=== PATIENT | female | born 1935 | race Caucasian/White ===

== ENCOUNTER 2018-08-11 17:26 | Inpatient (IN) | payer MEDICARE, OTHER ==
--- NOTE | 2018-08-11 18:31 | EDM.PDOC ---
ED HPI GENERAL MEDICAL PROBLEM - General Chief Complaint: General Stated Complaint: lethargic Time Seen by Provider: 08/11/18 17:41 Source of Information: Reports: EMS, Family, [facility] Records, RN History Limitations: Reports: Altered Mental Status - History of Present Illness INITIAL COMMENTS - FREE TEXT/NARRATIVE: This patient is an 83 year old female that presents to the ER via EMS. Patient is from intermediate. Report is obtained from patient, family, EMS, RN. It is reported by family the patient since has been becoming more nonverbal. They say just not acting her self. They say, then on Monday that she has become less nonverbal and only answering by saying yes and no. They say then the following day on that she was even less responsive and slept more. They report than they visited today and noticed she was nonverbal and was hard to wake up. They report the patient about a week ago was being treated for leg wounds that were infected. Family reports that the were told that have been getting better. The patient intermediate reports the patient has had a fever and has had treatment for that. The patient arrives. She does follow some commands like opening her mouth Onset: Gradual Onset Date: 08/08/18 Duration: Day(s): (3), Getting Worse Severity: Severe Improves with: Reports: None Worsens with: Reports: None Associated Symptoms: Reports: Confusion, Fever/Chills, Loss of Appetite, Weakness. Denies: Chest Pain, Cough, cough w sputum, Diaphoresis, Headaches, Malaise, Nausea/Vomiting, Rash, Seizure, Shortness of Breath, Syncope - Related Data Allergies Allergy/AdvReac Type Severity Reaction Status Date / Time No Known Allergies Allergy Verified 09/12/14 08:24 Home Meds: Home Meds Enalapril/Hydrochlorothiazide [Vaseretic 10-25 MG] 1 tab PO DAILY 10/14/13 [ History] Metoprolol Tartrate [Lopressor] 50 mg PO BID 10/14/13 [History] Warfarin Sliding Scale [Coumadin Sliding Scale] 5 mg PO DAILY 10/14/13 [History] Acetaminophen [Tylenol Extra Strength] 1,000 mg PO TID 08/11/18 [History] Hydrocortisone [Cortef] 10 mg PO DAILY 08/11/18 [History] Hydrocortisone [Preparation H] 26 gm TP QID 08/11/18 [History] Magnesium Oxide 500 mg PO DAILY 08/11/18 [History] Memantine HCl [Namenda Xr] 28 mg PO DAILY 08/11/18 [History] Potassium Chloride [K-Tab ER] 20 meq PO DAILY 08/11/18 [History] Rivastigmine [Exelon] 4.6 mg TD DAILY 08/11/18 [History] Sertraline HCl [Zoloft] 50 mg PO DAILY 08/11/18 [History] Warfarin [Coumadin] 2.5 mg PO DAILY 08/11/18 [History] ED ROS GENERAL - Review of Systems Review Of Systems: See Below Constitutional: Reports: Weakness, Fatigue, Decreased Appetite HEENT: Reports: No Symptoms Respiratory: Reports: No Symptoms Cardiovascular: Reports: No Symptoms Endocrine: Reports: No Symptoms GI/Abdominal: Reports: No Symptoms : Reports: No Symptoms Musculoskeletal: Reports: No Symptoms Skin: Reports: No Symptoms Neurological: Reports: Confusion, Trouble Speaking, Weakness Psychiatric: Reports: No Symptoms Hematologic/Lymphatic: Reports: No Symptoms Immunologic: Reports: No Symptoms ED EXAM, GENERAL - Physical Exam Exam: See Below Exam Limited By: No Limitations General Appearance: Moderate Distress Eye Exam: Bilateral Eye: PERRL, Other (pale conjuctiva) Ears: Normal External Exam, Normal Canal, Hearing Grossly Normal, Normal TMs Ear Exam: Bilateral Ear: Auricle Normal, Canal Normal, TM normal Nose: Normal Inspection, Normal Mucosa, No Blood Throat/Mouth: Normal Inspection, Normal Lips, Normal Teeth, Normal Gums, Normal Oropharynx, Normal Voice, No Airway Compromise, Other (dark, black appearing grounds in mouth. pale oral mucosa. ) Head: Atraumatic, Normocephalic Neck: Normal Inspection, Supple, Non-Tender, Full Range of Motion Respiratory/Chest: No Respiratory Distress, Lungs Clear, Normal Breath Sounds, No Accessory Muscle Use, Chest Non-Tender, Other (infrequenct pursed lip breaths at times. ) Cardiovascular: Normal Peripheral Pulses, No JVD, Irregularly Irregular, Other ( +1 LLE. +2 RLE) Peripheral Pulses: 1+: Carotid (L), Carotid (R), Radial (L), Radial (R), Posterior Tibial (L), Posterior Tibial (R), Dorsalis Pedis (L), Dorsalis Pedis ( R) GI/Abdominal: Normal Bowel Sounds, Soft, Non-Tender, No Organomegaly, No Distention, No Abnormal Bruit, No Mass, Pelvis Stable Rectal (Female) Exam: Normal Rectal Tone, Black Stool, Heme + Stool Back Exam: Normal Inspection, Full Range of Motion Extremities: Normal Inspection, Normal Range of Motion, Non-Tender, No Pedal Edema, Pedal Edema (RLL +2, LLE +1), Pallor Neurological: Confused, Unresponsive, Other (Nonverbal. Eye opening at times. Responds to painful stimuli. GCS 9. Eye opening to pain, incomprehensive sounds , moves to localized pain. ) Psychiatric: Normal Affect, Normal Mood Skin Exam: Warm, Dry, No Rash, Decubitus (RLL two. LLE multiple. Drainage from all. Images to be taken. See RN photos. ), Erythema (RLL. LLE. ) Lymphatic: No Adenopathy Front/Back Body Diagram: 1 - wound 2 - wound 3 - wound 4 - wound 5 - redness, heat. 6 - redness, heat Course - Vital Signs Last Recorded V/S: Last Vital Signs Temp 97.3 F 08/12/18 16:46 Pulse 87 08/12/18 16:46 Resp 20 08/12/18 16:46 BP 108/56 L 08/12/18 16:46 Pulse Ox 92 L 08/12/18 16:46 - Orders/Labs/Meds Orders: Active Orders 24 hr Category Date Time Status Patient Status [ADT] Routine ADT 08/11/18 21:49 Active Bedrest Bathroom Privileges [RC] .PRN Care 08/11/18 21:49 Active Blood Glucose Check, Bedside [RC] ONETIME Care 08/11/18 17:42 Active Cardiac Monitoring [RC] 0800,2000 Care 08/11/18 21:49 Active Height and Weight [RC] .PRN Care 08/11/18 21:49 Active Intake and Output [RC] 0600,1800 Care 08/11/18 21:49 Active Notify Provider Vital Signs [RC] .PRN Care 08/11/18 21:49 Active Oxygen Therapy [RC] 2355 Care 08/11/18 21:49 Active Vital Signs [RC] 0400,0800,1200,1600,2000,0000 Care 08/11/18 21:49 Active Chest 1V Frontal [CR] Routine Exams 08/12/18 08:00 Taken Chest 1V Frontal [CR] Stat Exams 08/11/18 17:42 Taken Head wo Cont [CT] Stat Exams 08/11/18 17:42 Taken BASIC METABOLIC PANEL,BMP [CHEM] DAILY Lab 08/13/18 05:00 Ordered BASIC METABOLIC PANEL,BMP [CHEM] DAILY Lab 08/14/18 05:00 Ordered BASIC METABOLIC PANEL,BMP [CHEM] DAILY Lab 08/15/18 05:00 Ordered CBC WITH AUTO DIFF [HEME] DAILY Lab 08/13/18 05:00 Ordered CBC WITH AUTO DIFF [HEME] DAILY Lab 08/14/18 05:00 Ordered CBC WITH AUTO DIFF [HEME] DAILY Lab 08/15/18 05:00 Ordered CULTURE BLOOD [BC] Stat Lab 08/11/18 18:10 Results CULTURE BLOOD [BC] Stat Lab 08/11/18 18:15 Results CULTURE WOUND [RM] Stat Lab 08/11/18 18:00 Results INR,PT,PROTHROMBIN TIME [COAG] DAILY Lab 08/13/18 05:00 Ordered INR,PT,PROTHROMBIN TIME [COAG] DAILY Lab 08/14/18 05:00 Ordered INR,PT,PROTHROMBIN TIME [COAG] DAILY Lab 08/15/18 05:00 Ordered VANCOMYCIN-RANDOM [REF] Routine Lab 08/13/18 08:00 Ordered Acetaminophen [Tylenol] Med 08/11/18 21:49 Active 650 mg RECTAL Q4H PRN LORazepam [Ativan] Med 08/11/18 21:49 Active 1 mg IVPUSH Q6H PRN Morphine Med 08/11/18 21:49 Active 2 mg IVPUSH Q2H PRN Ondansetron [Zofran] Med 08/11/18 21:49 Active 4 mg IV Q6H PRN Pantoprazole [ProTONIX IV] 80 mg Med 08/11/18 20:15 Active Sodium Chloride 0.9% [Normal Saline] 100 ml IV .CONTINUOUS Pharmacy to Dose - Vancomycin Med 08/11/18 21:00 Pending 1 dose .XX ONETIME ONE Antiembolic Hose [OM.PC] Per Unit Routine Oth 08/11/18 21:49 Ordered Blood Culture x2 Reflex Set [OM.PC] Stat Ot 08/11/18 17:42 Ordered Transfuse Fresh Frozen Plasma [COMM] Stat Oth 08/11/18 20:10 Ordered Transfuse RBC [Transfuse Red Blood Cells] [COMM] Stat Ot 08/11/18 18:32 Ordered VTE Pharmacological Contraindications [AST] Per Unit Ot 08/11/18 21:49 Ordered Routine Resuscitation Status Routine Resus Stat 08/11/18 20:49 Ordered Medication Orders Acetaminophen (Tylenol) 650 mg RECTAL Q4H PRN PRN Reason: Mild pain/fever Last Admin: 08/12/18 04:50 Dose: 650 mg Admin: 08/12/18 00:51 Dose: 650 mg Bisacodyl (Dulcolax) 10 mg RECTAL DAILY PRN PRN Reason: Constipation Last Admin: 08/12/18 15:00 Dose: 10 mg Pantoprazole Sodium 80 mg/ (Sodium Chloride) 100 mls @ 10 mls/hr IV .CONTINUOUS SCOOTER Last Admin: 08/12/18 07:59 Dose: 10 mls/hr Admin: 08/11/18 22:06 Dose: 10 mls/hr Piperacillin Sod/Tazobactam (Sod 4.5 gm/ Sodium Chloride) 100 mls @ 200 mls/hr IV Q6H SCOOTER Last Admin: 08/12/18 14:48 Dose: 200 mls/hr Admin: 08/12/18 07:59 Dose: 200 mls/hr Admin: 08/12/18 01:57 Dose: 200 mls/hr Sodium Chloride (Normal Saline) 50 mls @ 1 mls/hr IV ASDIRECTED [facility] Lorazepam (Ativan) 1 mg IVPUSH Q6H PRN PRN Reason: Anxiety Metoprolol Tartrate (Lopressor) 2.5 mg IVPUSH Q6H SCOOTER Last Admin: 08/12/18 11:30 Dose: 2.5 mg Admin: 08/12/18 05:46 Dose: 2.5 mg Admin: 08/12/18 00:56 Dose: 2.5 mg Morphine Sulfate (Morphine) 2 mg IVPUSH Q2H PRN PRN Reason: Pain (severe 7-10) Last Admin: 08/12/18 14:29 Dose: 2 mg Admin: 08/12/18 12:22 Dose: 2 mg Admin: 08/12/18 09:51 Dose: 2 mg Admin: 08/12/18 07:58 Dose: 2 mg Rivastigmine [Exelon (] 4.6 MgOwn Med) 4.6 mg TD DAILY@2000 [facility] Ondansetron HCl (Zofran) 4 mg IV Q6H PRN PRN Reason: Nausea/Vomiting Vancomycin HCl (Pharmacy To Dose - Vancomycin) 1 dose .XX ONETIME ONE Stop: 08/11/18 21:01 Labs: Laboratory Tests 08/11/18 08/11/18 08/11/18 Range/Units 18:00 18:10 18:10 WBC 14.4 H (5.0-10.0) 10^3/uL Corrected WBC 5.9 (5.0-10.0) 10^3/uL RBC 2.36 L (4.00-5.50) 10^6/uL Hgb 5.6 L* (12.0-16.0) g/dL Hct 19.5 L* (37.0-47.0) % MCV 82.6 (82.0-94.0) fL MCH 23.7 L (27.0-32.0) pg MCHC 28.7 L (33.0-38.0) g/dL RDW Coeff of [place] 29.9 H (11.0-15.0) % Plt Count 50 L (150-400) 10^3/uL Add Manual Diff Yes Neutrophils % (Manual) 62 (35-85) % Band Neutrophils % 1 (0-5) % Lymphocytes % (Manual) 21 (21-55) % Monocytes % (Manual) 16 H (2-12) % Absolute Neutrophils 9.07 H (1.80-7.00) 10^3/uL Lymphocytes # (Manual) 3.02 (1.00-4.80) 10^3/uL Monocytes # (Manual) 2.30 H (0.00-0.80) 10^3/uL Nucleated RBCs 143 H (0-5) /100WBC Poikilocytosis 2+ moderate H (NOT SEEN) Anisocytosis 2+ moderate H (NOT SEEN) Elliptocytes 1+ slight H (NOT SEEN) Schistocytes 1+ slight H (NOT SEEN) PT (9.7-12.3) SEC INR (0.92-1.18) Sodium 140 (136-145) mEq/L Potassium 5.1 H (3.5-5.0) mEq/L Chloride 105 (98-106) mEq/L Carbon Dioxide 26 (21-32) mmol/L BUN 57 H D (7-18) mg/dL Creatinine 2.0 H D (0.6-1.0) mg/dL Est Cr Clr Drug Dosing 16.86 mL/min Estimated GFR (MDRD) 24 L (>=60) mL/min Glucose 292 H D (75-99) mg/dL Lactic Acid (0.4-2.0) mmol/L Calcium 9.2 (8.4-10.1) mg/dL Total Bilirubin 2.1 H (0.0-1.0) mg/dL AST 38 H (15-37) U/L ALT 22 (12-78) U/L Alkaline Phosphatase 98 (46-116) U/L Creatine Kinase 48 (21-215) U/L Troponin I 0.045 (0.00-0.06) ng/mL NT-Pro-B Natriuret Pep 9946 H (0-1000) pg/mL Total Protein 7.5 (6.4-8.2) g/dL Albumin 2.6 L (3.4-5.0) g/dL Urine Color Yellow (YELLOW) Urine Appearance Clear (CLEAR) Urine pH 6.0 (4.5-8.0) Ur Specific [place] 1.020 (1.003-1.020) Urine Protein Trace H (NEGATIVE) mg/dL Urine Glucose (UA) Negative (NEGATIVE) mg/dL Urine Ketones Negative (NEGATIVE) mg/dL Urine Occult Blood Negative (NEGATIVE) Urine Nitrite Negative (NEGATIVE) Urine Bilirubin Negative (NEGATIVE) Urine Urobilinogen 1.0 (0.2-1.0) EU/dL Ur Leukocyte Esterase Negative (NEGATIVE) Urine RBC Not seen (0-5) /HPF Urine WBC 0-5 (0-5) /HPF Ur Epithelial Cells Rare (NOT SEEN) /HPF Urine Bacteria Rare (NOT SEEN) /HPF Blood Type Gel Antibody Screen Crossmatch 08/11/18 08/11/18 08/11/18 Range/Units 18:10 18:15 18:15 WBC (5.0-10.0) 10^3/uL Corrected WBC (5.0-10.0) 10^3/uL RBC (4.00-5.50) 10^6/uL Hgb (12.0-16.0) g/dL Hct (37.0-47.0) % MCV (82.0-94.0) fL MCH (27.0-32.0) pg MCHC (33.0-38.0) g/dL RDW Coeff of [place] (11.0-15.0) % Plt Count (150-400) 10^3/uL Add Manual Diff Neutrophils % (Manual) (35-85) % Band Neutrophils % (0-5) % Lymphocytes % (Manual) (21-55) % Monocytes % (Manual) (2-12) % Absolute Neutrophils (1.80-7.00) 10^3/uL Lymphocytes # (Manual) (1.00-4.80) 10^3/uL Monocytes # (Manual) (0.00-0.80) 10^3/uL Nucleated RBCs (0-5) /100WBC Poikilocytosis (NOT SEEN) Anisocytosis (NOT SEEN) Elliptocytes (NOT SEEN) Schistocytes (NOT SEEN) PT 61.3 H (9.7-12.3) SEC INR 6.79 H* (0.92-1.18) Sodium (136-145) mEq/L Potassium (3.5-5.0) mEq/L Chloride (98-106) mEq/L Carbon Dioxide (21-32) mmol/L BUN (7-18) mg/dL Creatinine (0.6-1.0) mg/dL Est Cr Clr Drug Dosing mL/min Estimated GFR (MDRD) (>=60) mL/min Glucose (75-99) mg/dL Lactic Acid 4.0 H (0.4-2.0) mmol/L Calcium (8.4-10.1) mg/dL Total Bilirubin (0.0-1.0) mg/dL AST (15-37) U/L ALT (12-78) U/L Alkaline Phosphatase (46-116) U/L Creatine Kinase (21-215) U/L Troponin I (0.00-0.06) ng/mL NT-Pro-B Natriuret Pep (0-1000) pg/mL Total Protein (6.4-8.2) g/dL Albumin (3.4-5.0) g/dL Urine Color (YELLOW) Urine Appearance (CLEAR) Urine pH (4.5-8.0) Ur Specific [place] (1.003-1.020) Urine Protein (NEGATIVE) mg/dL Urine Glucose (UA) (NEGATIVE) mg/dL Urine Ketones (NEGATIVE) mg/dL Urine Occult Blood (NEGATIVE) Urine Nitrite (NEGATIVE) Urine Bilirubin (NEGATIVE) Urine Urobilinogen (0.2-1.0) EU/dL Ur Leukocyte Esterase (NEGATIVE) Urine RBC (0-5) /HPF Urine WBC (0-5) /HPF Ur Epithelial Cells (NOT SEEN) /HPF Urine Bacteria (NOT SEEN) /HPF Blood Type B POSITIVE Gel Antibody Screen Negative Crossmatch See Detail Meds: Medications Generic Name Dose Route Start Last Admin Trade Name Freq PRN Reason Stop Dose Admin Acetaminophen 650 mg 08/11/18 21:49 08/12/18 04:50 Tylenol RECTAL 650 mg Q4H PRN Administration Mild pain/fever Bisacodyl 10 mg 08/12/18 14:51 08/12/18 15:00 Dulcolax RECTAL 10 mg DAILY PRN Administration Constipation Pantoprazole Sodium 80 mg/ 100 mls @ 10 mls/hr 08/11/18 20:15 08/12/18 07:59 Sodium Chloride IV 10 mls/hr .CONTINUOUS SCOOTER Administration Piperacillin Sod/Tazobactam 100 mls @ 200 mls/hr 08/12/18 02:00 08/12/18 14: 48 Sod 4.5 gm/ Sodium Chloride IV 200 mls/hr Q6H SCOOTER Administration Sodium Chloride 50 mls @ 1 mls/hr 08/12/18 16:15 Normal Saline IV ASDIRECTED [facility] Lorazepam 1 mg 08/11/18 21:49 Ativan IVPUSH Q6H PRN Anxiety Metoprolol Tartrate 2.5 mg 08/12/18 00:00 08/12/18 11:30 Lopressor IVPUSH 2.5 mg Q6H SCOOTER Administration Morphine Sulfate 2 mg 08/11/18 21:49 08/12/18 14:29 Morphine IVPUSH 2 mg Q2H PRN Administration Pain (severe 7-10) Rivastigmine [Exelon 4.6 mg 08/12/18 20:00 ] 4.6 MgOwn Med TD DAILY@1999 [facility] Ondansetron HCl 4 mg 08/11/18 21:49 Zofran IV Q6H PRN Nausea/Vomiting Vancomycin HCl 1 dose 08/11/18 21:00 Pharmacy To Dose - Vancomycin .XX 08/11/18 21:01 ONETIME ONE Discontinued Medications Generic Name Dose Route Start Last Admin Trade Name Freq PRN Reason Stop Dose Admin Furosemide 40 mg 08/11/18 20:15 08/11/18 23:09 Lasix IVPUSH 08/11/18 20:16 40 mg ONETIME ONE Administration Furosemide 40 mg 08/12/18 09:40 08/12/18 12:24 Lasix IVPUSH 08/12/18 09:41 40 mg ONETIME ONE Administration Hydrocortisone 0 gm 08/12/18 08:00 08/12/18 10:59 Hydrocortisone 1% Crm TOP Not Given QID [facility] Piperacillin Sod/Tazobactam 100 mls @ 200 mls/hr 08/11/18 20:10 08/11/18 20: 50 Sod 4.5 gm/ Sodium Chloride IV 08/11/18 20:39 200 mls/hr NOW STA Administration Vancomycin HCl 1.5 gm/ Sodium 500 mls @ 250 mls/hr 08/11/18 21:00 08/11/18 21 :29 Chloride IV 08/11/18 22:59 250 mls/hr Q24H SCOOTER Administration Sodium Chloride Confirm 08/11/18 20:51 08/11/18 20:56 Normal Saline Administered 08/11/18 20:52 150 mls/hr Dose Administration 250 mls @ as directed .ROUTE .STK-MED ONE Piperacillin Sod/Tazobactam 100 mls @ 200 mls/hr 08/11/18 21:49 08/11/18 23: 29 Sod 4.5 gm/ Sodium Chloride IV Not Given Q6H SCOOTER Sodium Chloride 250 mls @ 150 mls/hr 08/12/18 02:30 Normal Saline IV ASDIRECTED [facility]COOT[facility] Sodium Chloride Confirm 08/12/18 09:52 08/12/18 14:48 Normal Saline Administered 08/12/18 09:53 150 mls/hr Dose Administration 250 mls @ as directed .ROUTE .STK-MED ONE Metoprolol Tartrate 2.5 mg 08/11/18 21:49 08/12/18 01:03 Lopressor IVPUSH Not Given Q6H [facility] Non-Formulary Medication 4.6 mg 08/12/18 08:00 08/12/18 08:02 Rivastigmine [Exelon] TD Not Given DAILY [facility] Pantoprazole Sodium 80 mg 08/11/18 20:10 08/11/18 20:41 Protonix Iv IVPUSH 08/11/18 20:11 80 mg ONETIME ONE Administration Pantoprazole Sodium Confirm 08/12/18 07:44 08/12/18 08:02 Protonix Iv Administered 08/12/18 07:45 Not Given Dose 40 mg .ROUTE .STK-MED ONE Phytonadione 10 mg 08/11/18 20:09 08/11/18 20:43 Aquamephyton SUBCUT 08/11/18 20:10 10 mg ONETIME ONE Administration Vancomycin HCl 1 dose 08/11/18 21:49 Pharmacy To Dose - Vancomycin .XX ASDIRECTED [facility] - Radiology Interpretation Free Text/Narrative:: Head CT: No bleed, infarct, shift. CXR: No pulmonary edema, no infiltrates, no cardiac enlargement. CT Results Date: 08/11/18 CT Results Time: 19:00 - Re-Assessments/Exams Free Text/Narrative Re-Assessment/Exam: 08/11/18 19:00 I have spoken with family 3xs and the POA each time. This patient is very ill. Her HGB is very low, her INR is high, she has an infection. The patent is nearly unresponsive. I explained to them about more than likely being eminent without treatment. Explained the need for Blood and Plasma and IV Abx. The patient is a DNR. The POA does not want CPR or machines. He is discussing with other family members on what to do for treatment if any. They have asked many questions about the patient condition, I have educated them about the patent condition. I have encouraged patient transfer, but family would like to have patient stay in [place]. Explained that we do not have specialist, ICU, or high level of care at this facility. Family would still like patient to stay here at this facility in [place]. Aware that may result. 08/11/18 19:18 After again discussing the pros and cons, risks verse benefits including life and . The family JEN has elected to treat the patient with Plasma, Blood, and Abx at this time. They would like to keep her as comfortable as possible too. I did discuss with POA and family that giving blood will fluid overload her. She already has renal failure and heart failure. This may cause fluid overload and . Again, discussed transfer, family would like to keep here. 08/11/181939 I called and spoke to Kevan about patient case. She reports everything doing so far is correct. She would also add Vit K SQ as well. She reports also starting Protonix bolus and gtt. We discussed that the patient is already having heart failure, then when we give the blood, it will make worse. I did again discuss this with the family Roc LI and the family. Shared decision making was made and will continue with the plan of action. 08/11/18 20:10 I want to give the patient 2 FFP and 2 units of RBCs now. I believe she will need more. We only have 2 FFP in house. Lab is attempting to get someone to deliver more tonight and also more RBCs. The FFP and RBCs we have will be started. This was discussed with family. Will await lab if truck driver heavy for delivery. 08/11/18 20:35 Our ambulance service is currently in [place] after a previous transfer. They are able to moss picker the FFP and RBCs. I have informed the family of this. 08/11/18 20:38 I will now admit patient. 08/11/18 21:37 Discussed with Kevan. Would continue Metoprolol, but switch to IV. Will hold PO meds. Would not treat hyperglycemia at this time. As, patient is NPO. Departure - Departure Time of Disposition: 19:28 Disposition: Admitted As Inpatient 66 Condition: Critical Clinical Impression: Unresponsive, Hyperglycemia Anemia Qualifiers: Anemia type: unspecified type Qualified Code(s): D64.9 - Anemia, unspecified Coumadin toxicity Qualifiers: Encounter type: initial encounter Injury intent: accidental or unintentional Qualified Code(s): T45.511A - Poisoning by anticoagulants, accidental ( unintentional), initial encounter Cellulitis Qualifiers: Site of cellulitis: extremity Site of cellulitis of extremity: lower extremity Laterality: right Qualified Code(s): L03.115 - Cellulitis of right lower limb Sepsis Qualifiers: Sepsis type: sepsis due to unspecified organism Qualified Code(s): A41.9 - Sepsis, unspecified organism Renal failure Qualifiers: Renal failure chronicity: acute Acute renal failure type: unspecified Qualified Code(s): N17.9 - Acute kidney failure, unspecified Altered mental status Qualifiers: Altered mental status type: unspecified Qualified Code(s): R41.82 - Altered mental status, unspecified Afib Qualifiers: Atrial fibrillation type: chronic Qualified Code(s): I48.2 - Chronic atrial fibrillation - Discharge Information *PRESCRIPTION DRUG MONITORING PROGRAM REVIEWED*: Not Applicable *COPY OF PRESCRIPTION DRUG MONITORING REPORT IN PATIENT SIDNEY: Not Applicable - My Orders Last 24 Hours: My Active Orders 08/11/18 17:42 Blood Glucose Check, Bedside [RC] ONETIME Chest 1V Frontal [CR] Stat Head wo Cont [CT] Stat Blood Culture x2 Reflex Set [OM.PC] Stat 08/11/18 18:00 CULTURE WOUND [RM] Stat 08/11/18 18:10 CULTURE BLOOD [BC] Stat 08/11/18 18:15 CULTURE BLOOD [BC] Stat 08/11/18 18:32 Transfuse RBC [Transfuse Red Blood Cells] [COMM] Stat 08/11/18 20:10 Transfuse Fresh Frozen Plasma [COMM] Stat 08/11/18 20:15 Pantoprazole [ProTONIX IV] 80 mg Sodium Chloride 0.9% [Normal Saline] 100 ml IV .CONTINUOUS 08/11/18 20:49 Resuscitation Status Routine 08/11/18 21:00 Pharmacy to Dose - Vancomycin 1 dose .XX ONETIME ONE 08/11/18 21:49 Patient Status [ADT] Routine Bedrest Bathroom Privileges [RC] .PRN Cardiac Monitoring [RC] 0800,2000 Height and Weight [RC] .PRN Intake and Output [RC] 0600,1800 Notify Provider Vital Signs [RC] .PRN Oxygen Therapy [RC] 2355 Vital Signs [RC] 0400,0800,1200,1600,2000,0000 Acetaminophen [Tylenol] 650 mg RECTAL Q4H PRN LORazepam [Ativan] 1 mg IVPUSH Q6H PRN Morphine 2 mg IVPUSH Q2H PRN Ondansetron [Zofran] 4 mg IV Q6H PRN Antiembolic Hose [OM.PC] Per Unit Routine VTE Pharmacological Contraindications [AST] Per Unit Routine 08/12/18 08:00 Chest 1V Frontal [CR] Routine 08/13/18 05:00 BASIC METABOLIC PANEL,BMP [CHEM] DAILY CBC WITH AUTO DIFF [HEME] DAILY INR,PT,PROTHROMBIN TIME [COAG] DAILY 08/14/18 05:00 BASIC METABOLIC PANEL,BMP [CHEM] DAILY CBC WITH AUTO DIFF [HEME] DAILY INR,PT,PROTHROMBIN TIME [COAG] DAILY 08/15/18 05:00 BASIC METABOLIC PANEL,BMP [CHEM] DAILY CBC WITH AUTO DIFF [HEME] DAILY INR,PT,PROTHROMBIN TIME [COAG] DAILY - Assessment/Plan Last 24 Hours: My Active Orders 08/11/18 17:42 Blood Glucose Check, Bedside [RC] ONETIME Chest 1V Frontal [CR] Stat Head wo Cont [CT] Stat Blood Culture x2 Reflex Set [OM.PC] Stat 08/11/18 18:00 CULTURE WOUND [RM] Stat 08/11/18 18:10 CULTURE BLOOD [BC] Stat 08/11/18 18:15 CULTURE BLOOD [BC] Stat 08/11/18 18:32 Transfuse RBC [Transfuse Red Blood Cells] [COMM] Stat 08/11/18 20:10 Transfuse Fresh Frozen Plasma [COMM] Stat 08/11/18 20:15 Pantoprazole [ProTONIX IV] 80 mg Sodium Chloride 0.9% [Normal Saline] 100 ml IV .CONTINUOUS 08/11/18 20:49 Resuscitation Status Routine 08/11/18 21:00 Pharmacy to Dose - Vancomycin 1 dose .XX ONETIME ONE 08/11/18 21:49 Patient Status [ADT] Routine Bedrest Bathroom Privileges [RC] .PRN Cardiac Monitoring [RC] 0800,2000 Height and Weight [RC] .PRN Intake and Output [RC] 0600,1800 Notify Provider Vital Signs [RC] .PRN Oxygen Therapy [RC] 2355 Vital Signs [RC] 0400,0800,1200,1600,2000,0000 Acetaminophen [Tylenol] 650 mg RECTAL Q4H PRN LORazepam [Ativan] 1 mg IVPUSH Q6H PRN Morphine 2 mg IVPUSH Q2H PRN Ondansetron [Zofran] 4 mg IV Q6H PRN Antiembolic Hose [OM.PC] Per Unit Routine VTE Pharmacological Contraindications [AST] Per Unit Routine 08/12/18 08:00 Chest 1V Frontal [CR] Routine 08/13/18 05:00 BASIC METABOLIC PANEL,BMP [CHEM] DAILY CBC WITH AUTO DIFF [HEME] DAILY INR,PT,PROTHROMBIN TIME [COAG] DAILY 08/14/18 05:00 BASIC METABOLIC PANEL,BMP [CHEM] DAILY CBC WITH AUTO DIFF [HEME] DAILY INR,PT,PROTHROMBIN TIME [COAG] DAILY 08/15/18 05:00 BASIC METABOLIC PANEL,BMP [CHEM] DAILY CBC WITH AUTO DIFF [HEME] DAILY INR,PT,PROTHROMBIN TIME [COAG] DAILY Plan: PLEASE SEE RN NOTE FOR PFSH. PLEASE USE ER H&P FOR ADMIT H&P I FEEL THIS PATIENT HAS HIGH PROBABILITY OF DURING THIS ADMIT. The patient is palliative care. She is an ICU admit, even though we do not have ICU capabilities. She will need 1:1 RN ratio. The family is aware she is exceeding our recourses, but would like to continue admit even if increases her chances of . The Patient comorbitities are dementia, a-fib rapid, anemia, GI bleed , Renal Failure, Congestive Heart Failure, Coumadin toxicity.
[2018-08-11] MEDS ORDERED: Pantoprazole 40 MG Vial IVPUSH ONE (20:10)
[2018-08-11] MEDS ORDERED: Piperacillin/Tazobactam 4.5 GM in Sodium Chloride 0.9% 100 ML IV STA (20:10)
[2018-08-11] MEDS ORDERED: Furosemide 40 MG/4 ML VIAL IVPUSH ONE (20:15)
[2018-08-11] MEDS ORDERED: Sodium Chloride 0.9% 250 ML ONE (20:51)
[2018-08-11] MEDS ORDERED: Vancomycin 1.5 GM in Sodium Chloride 0.9% 500 ML IV SCH (21:00)
[2018-08-11] MEDS ORDERED: LORazepam 2 MG/ML Syringe IVPUSH PRN (21:49)
[2018-08-11] MEDS ORDERED: Piperacillin/Tazobactam 4.5 GM in Sodium Chloride 0.9% 100 ML IV SCH (21:49)
[2018-08-11] MEDS ORDERED: Metoprolol Tartrate 5 MG/5 ML SDV IVPUSH SCH (21:49)
[2018-08-11] MEDS ORDERED: Ondansetron 4 MG/2 ML SDV IV PRN (21:49)
[2018-08-11] MEDS: Pantoprazole 80 MG in Sodium Chloride 0.9% 100 ML IV SCH (22:06)
[2018-08-12] MEDS: Acetaminophen 650 MG Supp RECTAL PRN ×2 (00:51→04:50)
[2018-08-12] MEDS: Metoprolol Tartrate 5 MG/5 ML SDV IVPUSH SCH ×4 (00:56→18:30)
[2018-08-12] MEDS: Piperacillin/Tazobactam 4.5 GM in Sodium Chloride 0.9% 100 ML IV SCH ×4 (01:57→20:00)
[2018-08-12] MEDS ORDERED: Sodium Chloride 0.9% 250 ML IV SCH (02:30)
[2018-08-12] MEDS ORDERED: Pantoprazole 40 MG Vial ONE (07:44)
[2018-08-12] MEDS: Morphine 2 MG/ML Syringe IVPUSH PRN ×7 (07:58→20:27)
[2018-08-12] MEDS: Pantoprazole 80 MG in Sodium Chloride 0.9% 100 ML IV SCH ×2 (07:59→20:24)
[2018-08-12] MEDS ORDERED: RIVASTIGMINE 4.6 MG TD SCH (08:00)
[2018-08-12] MEDS ORDERED: Hydrocortisone 1% Crm 30 GM Tube TOP SCH (08:00)
--- NOTE | 2018-08-12 08:29 | PCM.PN ---
- General Info Date of Service: 08/12/18 Functional Status: Reports: Other (Patient is restless. NPO) - Review of Systems General: Reports: Fever, Weakness, Appetite (None. NPO) HEENT: Reports: No Symptoms Pulmonary: Reports: Other (pursed lip breathing at times) Cardiovascular: Reports: Edema (+2 RLE, +1 LLE) Gastrointestinal: Reports: No Symptoms Genitourinary: Reports: No Symptoms Musculoskeletal: Reports: Leg Pain (bilateral) Skin: Reports: Other (wounds BLE. See RN images) Neurological: Reports: Confusion, Trouble Speaking, Weakness (generalized) Psychiatric: Reports: No Symptoms - Patient Data Vitals - Most Recent: Last Vital Signs Temp 99.4 F 08/12/18 07:42 Pulse 106 H 08/12/18 07:42 Resp 16 08/12/18 07:42 BP 120/43 L 08/12/18 07:42 Pulse Ox 92 L 08/12/18 07:42 Weight - Most Recent: 206 lb 3.2 oz I&O - Last 24 Hours: Intake & Output 08/11/18 08/12/18 08/12/18 22:59 06:59 14:59 Intake Total 519 983 Output Total 1325 Balance 519 -342 Lab Results Last 24 Hours: Laboratory Results - last 24 hr 08/11/18 08/11/18 08/11/18 Range/Units 18:00 18:10 18:10 WBC 14.4 H (5.0-10.0) 10^3/uL Corrected WBC 5.9 (5.0-10.0) 10^3/uL RBC 2.36 L (4.00-5.50) 10^6/uL Hgb 5.6 L* (12.0-16.0) g/dL Hct 19.5 L* (37.0-47.0) % MCV 82.6 (82.0-94.0) fL MCH 23.7 L (27.0-32.0) pg MCHC 28.7 L (33.0-38.0) g/dL RDW Coeff of Kendall 29.9 H (11.0-15.0) % Plt Count 50 L (150-400) 10^3/uL Add Manual Diff Yes Neutrophils % (Manual) 62 (35-85) % Band Neutrophils % 1 (0-5) % Lymphocytes % (Manual) 21 (21-55) % Monocytes % (Manual) 16 H (2-12) % Absolute Neutrophils 9.07 H (1.80-7.00) 10^3/uL Lymphocytes # (Manual) 3.02 (1.00-4.80) 10^3/uL Monocytes # (Manual) 2.30 H (0.00-0.80) 10^3/uL Nucleated RBCs 143 H (0-5) /100WBC Poikilocytosis 2+ moderate H (NOT SEEN) Anisocytosis 2+ moderate H (NOT SEEN) Elliptocytes 1+ slight H (NOT SEEN) Schistocytes 1+ slight H (NOT SEEN) PT (9.7-12.3) SEC INR (0.92-1.18) Sodium 140 (136-145) mEq/L Potassium 5.1 H (3.5-5.0) mEq/L Chloride 105 (98-106) mEq/L Carbon Dioxide 26 (21-32) mmol/L BUN 57 H D (7-18) mg/dL Creatinine 2.0 H D (0.6-1.0) mg/dL Est Cr Clr Drug Dosing 16.86 mL/min Estimated GFR (MDRD) 24 L (>=60) mL/min Glucose 292 H D (75-99) mg/dL Lactic Acid (0.4-2.0) mmol/L Calcium 9.2 (8.4-10.1) mg/dL Total Bilirubin 2.1 H (0.0-1.0) mg/dL AST 38 H (15-37) U/L ALT 22 (12-78) U/L Alkaline Phosphatase 98 (46-116) U/L Creatine Kinase 48 (21-215) U/L Troponin I 0.045 (0.00-0.06) ng/mL NT-Pro-B Natriuret Pep 9946 H (0-1000) pg/mL Total Protein 7.5 (6.4-8.2) g/dL Albumin 2.6 L (3.4-5.0) g/dL Urine Color Yellow (YELLOW) Urine Appearance Clear (CLEAR) Urine pH 6.0 (4.5-8.0) Ur Specific [place] 1.020 (1.003-1.020) Urine Protein Trace H (NEGATIVE) mg/dL Urine Glucose (UA) Negative (NEGATIVE) mg/dL Urine Ketones Negative (NEGATIVE) mg/dL Urine Occult Blood Negative (NEGATIVE) Urine Nitrite Negative (NEGATIVE) Urine Bilirubin Negative (NEGATIVE) Urine Urobilinogen 1.0 (0.2-1.0) EU/dL Ur Leukocyte Esterase Negative (NEGATIVE) Urine RBC Not seen (0-5) /HPF Urine WBC 0-5 (0-5) /HPF Ur Epithelial Cells Rare (NOT SEEN) /HPF Urine Bacteria Rare (NOT SEEN) /HPF Blood Type Gel Antibody Screen Crossmatch 08/11/18 08/11/18 08/11/18 Range/Units 18:10 18:15 18:15 WBC (5.0-10.0) 10^3/uL Corrected WBC (5.0-10.0) 10^3/uL RBC (4.00-5.50) 10^6/uL Hgb (12.0-16.0) g/dL Hct (37.0-47.0) % MCV (82.0-94.0) fL MCH (27.0-32.0) pg MCHC (33.0-38.0) g/dL RDW Coeff of [place] (11.0-15.0) % Plt Count (150-400) 10^3/uL Add Manual Diff Neutrophils % (Manual) (35-85) % Band Neutrophils % (0-5) % Lymphocytes % (Manual) (21-55) % Monocytes % (Manual) (2-12) % Absolute Neutrophils (1.80-7.00) 10^3/uL Lymphocytes # (Manual) (1.00-4.80) 10^3/uL Monocytes # (Manual) (0.00-0.80) 10^3/uL Nucleated RBCs (0-5) /100WBC Poikilocytosis (NOT SEEN) Anisocytosis (NOT SEEN) Elliptocytes (NOT SEEN) Schistocytes (NOT SEEN) PT 61.3 H (9.7-12.3) SEC INR 6.79 H* (0.92-1.18) Sodium (136-145) mEq/L Potassium (3.5-5.0) mEq/L Chloride (98-106) mEq/L Carbon Dioxide (21-32) mmol/L BUN (7-18) mg/dL Creatinine (0.6-1.0) mg/dL Est Cr Clr Drug Dosing mL/min Estimated GFR (MDRD) (>=60) mL/min Glucose (75-99) mg/dL Lactic Acid 4.0 H (0.4-2.0) mmol/L Calcium (8.4-10.1) mg/dL Total Bilirubin (0.0-1.0) mg/dL AST (15-37) U/L ALT (12-78) U/L Alkaline Phosphatase (46-116) U/L Creatine Kinase (21-215) U/L Troponin I (0.00-0.06) ng/mL NT-Pro-B Natriuret Pep (0-1000) pg/mL Total Protein (6.4-8.2) g/dL Albumin (3.4-5.0) g/dL Urine Color (YELLOW) Urine Appearance (CLEAR) Urine pH (4.5-8.0) Ur Specific [place] (1.003-1.020) Urine Protein (NEGATIVE) mg/dL Urine Glucose (UA) (NEGATIVE) mg/dL Urine Ketones (NEGATIVE) mg/dL Urine Occult Blood (NEGATIVE) Urine Nitrite (NEGATIVE) Urine Bilirubin (NEGATIVE) Urine Urobilinogen (0.2-1.0) EU/dL Ur Leukocyte Esterase (NEGATIVE) Urine RBC (0-5) /HPF Urine WBC (0-5) /HPF Ur Epithelial Cells (NOT SEEN) /HPF Urine Bacteria (NOT SEEN) /HPF Blood Type B POSITIVE Gel Antibody Screen Negative Crossmatch See Detail 08/12/18 08/12/18 08/12/18 Range/Units 02:00 02:00 07:00 WBC (5.0-10.0) 10^3/uL Corrected WBC (5.0-10.0) 10^3/uL RBC (4.00-5.50) 10^6/uL Hgb 8.0 L (12.0-16.0) g/dL Hct 25.5 L (37.0-47.0) % MCV (82.0-94.0) fL MCH (27.0-32.0) pg MCHC (33.0-38.0) g/dL RDW Coeff of [place] (11.0-15.0) % Plt Count (150-400) 10^3/uL Add Manual Diff Neutrophils % (Manual) (35-85) % Band Neutrophils % (0-5) % Lymphocytes % (Manual) (21-55) % Monocytes % (Manual) (2-12) % Absolute Neutrophils (1.80-7.00) 10^3/uL Lymphocytes # (Manual) (1.00-4.80) 10^3/uL Monocytes # (Manual) (0.00-0.80) 10^3/uL Nucleated RBCs (0-5) /100WBC Poikilocytosis (NOT SEEN) Anisocytosis (NOT SEEN) Elliptocytes (NOT SEEN) Schistocytes (NOT SEEN) PT 29.7 H (9.7-12.3) SEC INR 3.11 H (0.92-1.18) Sodium 146 H (136-145) mEq/L Potassium 4.0 D (3.5-5.0) mEq/L Chloride 108 H (98-106) mEq/L Carbon Dioxide 28 (21-32) mmol/L BUN 54 H (7-18) mg/dL Creatinine 1.9 H (0.6-1.0) mg/dL Est Cr Clr Drug Dosing 17.74 mL/min Estimated GFR (MDRD) 25 L (>=60) mL/min Glucose 287 H (75-99) mg/dL Lactic Acid (0.4-2.0) mmol/L Calcium 8.6 (8.4-10.1) mg/dL Total Bilirubin (0.0-1.0) mg/dL AST (15-37) U/L ALT (12-78) U/L Alkaline Phosphatase (46-116) U/L Creatine Kinase (21-215) U/L Troponin I (0.00-0.06) ng/mL NT-Pro-B Natriuret Pep (0-1000) pg/mL Total Protein (6.4-8.2) g/dL Albumin (3.4-5.0) g/dL Urine Color (YELLOW) Urine Appearance (CLEAR) Urine pH (4.5-8.0) Ur Specific [place] (1.003-1.020) Urine Protein (NEGATIVE) mg/dL Urine Glucose (UA) (NEGATIVE) mg/dL Urine Ketones (NEGATIVE) mg/dL Urine Occult Blood (NEGATIVE) Urine Nitrite (NEGATIVE) Urine Bilirubin (NEGATIVE) Urine Urobilinogen (0.2-1.0) EU/dL Ur Leukocyte Esterase (NEGATIVE) Urine RBC (0-5) /HPF Urine WBC (0-5) /HPF Ur Epithelial Cells (NOT SEEN) /HPF Urine Bacteria (NOT SEEN) /HPF Blood Type Gel Antibody Screen Crossmatch 08/12/18 08/12/18 Range/Units 07:25 07:25 WBC (5.0-10.0) 10^3/uL Corrected WBC (5.0-10.0) 10^3/uL RBC (4.00-5.50) 10^6/uL Hgb 7.1 L* (12.0-16.0) g/dL Hct 22.6 L (37.0-47.0) % MCV (82.0-94.0) fL MCH (27.0-32.0) pg MCHC (33.0-38.0) g/dL RDW Coeff of [place] (11.0-15.0) % Plt Count (150-400) 10^3/uL Add Manual Diff Neutrophils % (Manual) (35-85) % Band Neutrophils % (0-5) % Lymphocytes % (Manual) (21-55) % Monocytes % (Manual) (2-12) % Absolute Neutrophils (1.80-7.00) 10^3/uL Lymphocytes # (Manual) (1.00-4.80) 10^3/uL Monocytes # (Manual) (0.00-0.80) 10^3/uL Nucleated RBCs (0-5) /100WBC Poikilocytosis (NOT SEEN) Anisocytosis (NOT SEEN) Elliptocytes (NOT SEEN) Schistocytes (NOT SEEN) PT 26.7 H (9.7-12.3) SEC INR 2.77 H (0.92-1.18) Sodium (136-145) mEq/L Potassium (3.5-5.0) mEq/L Chloride (98-106) mEq/L Carbon Dioxide (21-32) mmol/L BUN (7-18) mg/dL Creatinine (0.6-1.0) mg/dL Est Cr Clr Drug Dosing mL/min Estimated GFR (MDRD) (>=60) mL/min Glucose (75-99) mg/dL Lactic Acid (0.4-2.0) mmol/L Calcium (8.4-10.1) mg/dL Total Bilirubin (0.0-1.0) mg/dL AST (15-37) U/L ALT (12-78) U/L Alkaline Phosphatase (46-116) U/L Creatine Kinase (21-215) U/L Troponin I (0.00-0.06) ng/mL NT-Pro-B Natriuret Pep (0-1000) pg/mL Total Protein (6.4-8.2) g/dL Albumin (3.4-5.0) g/dL Urine Color (YELLOW) Urine Appearance (CLEAR) Urine pH (4.5-8.0) Ur Specific [place] (1.003-1.020) Urine Protein (NEGATIVE) mg/dL Urine Glucose (UA) (NEGATIVE) mg/dL Urine Ketones (NEGATIVE) mg/dL Urine Occult Blood (NEGATIVE) Urine Nitrite (NEGATIVE) Urine Bilirubin (NEGATIVE) Urine Urobilinogen (0.2-1.0) EU/dL Ur Leukocyte Esterase (NEGATIVE) Urine RBC (0-5) /HPF Urine WBC (0-5) /HPF Ur Epithelial Cells (NOT SEEN) /HPF Urine Bacteria (NOT SEEN) /HPF Blood Type Gel Antibody Screen Crossmatch Med Orders - Current: Current Medications Acetaminophen (Tylenol) 650 mg RECTAL Q4H PRN PRN Reason: Mild pain/fever Last Admin: 08/12/18 04:50 Dose: 650 mg Hydrocortisone (Hydrocortisone 1% Crm) 0 gm TOP QID [facility] Pantoprazole Sodium 80 mg/ (Sodium Chloride) 100 mls @ 10 mls/hr IV .CONTINUOUS SCOOTER Last Admin: 08/12/18 07:59 Dose: 10 mls/hr Piperacillin Sod/Tazobactam (Sod 4.5 gm/ Sodium Chloride) 100 mls @ 200 mls/hr IV Q6H SCOOTER Last Admin: 08/12/18 07:59 Dose: 200 mls/hr Lorazepam (Ativan) 1 mg IVPUSH Q6H PRN PRN Reason: Anxiety Metoprolol Tartrate (Lopressor) 2.5 mg IVPUSH Q6H [facility] Last Admin: 08/12/18 05:46 Dose: 2.5 mg Morphine Sulfate (Morphine) 2 mg IVPUSH Q2H PRN PRN Reason: Pain (severe 7-10) Last Admin: 08/12/18 07:58 Dose: 2 mg Non-Formulary Medication (Rivastigmine [Exelon]) 4.6 mg TD DAILY [facility] Last Admin: 08/12/18 08:02 Dose: Not Given Ondansetron HCl (Zofran) 4 mg IV Q6H PRN PRN Reason: Nausea/Vomiting Vancomycin HCl (Pharmacy To Dose - Vancomycin) 1 dose .XX ONETIME ONE Stop: 08/11/18 21:01 Discontinued Medications Furosemide (Lasix) 40 mg IVPUSH ONETIME ONE Stop: 08/11/18 20:16 Last Admin: 08/11/18 23:09 Dose: 40 mg Piperacillin Sod/Tazobactam (Sod 4.5 gm/ Sodium Chloride) 100 mls @ 200 mls/hr IV NOW [facility] Stop: 08/11/18 20:39 Last Admin: 08/11/18 20:50 Dose: 200 mls/hr Vancomycin HCl 1.5 gm/ Sodium (Chloride) 500 mls @ 250 mls/hr IV Q24H [facility] Stop: 08/11/18 22:59 Last Admin: 08/11/18 21:29 Dose: 250 mls/hr Sodium Chloride (Normal Saline) Confirm Administered Dose 250 mls @ as directed .ROUTE .STK-MED ONE Stop: 08/11/18 20:52 Last Admin: 08/11/18 20:56 Dose: 150 mls/hr Piperacillin Sod/Tazobactam (Sod 4.5 gm/ Sodium Chloride) 100 mls @ 200 mls/hr IV Q6H [facility] Last Admin: 08/11/18 23:29 Dose: Not Given Sodium Chloride (Normal Saline) 250 mls @ 150 mls/hr IV ASDIRECTED [facility] Metoprolol Tartrate (Lopressor) 2.5 mg IVPUSH Q6H [facility] Last Admin: 08/12/18 01:03 Dose: Not Given Pantoprazole Sodium (Protonix Iv) 80 mg IVPUSH ONETIME ONE Stop: 08/11/18 20:11 Last Admin: 08/11/18 20:41 Dose: 80 mg Pantoprazole Sodium (Protonix Iv) Confirm Administered Dose 40 mg .ROUTE .STK -MED ONE Stop: 08/12/18 07:45 Last Admin: 08/12/18 08:02 Dose: Not Given Phytonadione (Aquamephyton) 10 mg SUBCUT ONETIME ONE Stop: 08/11/18 20:10 Last Admin: 08/11/18 20:43 Dose: 10 mg Vancomycin HCl (Pharmacy To Dose - Vancomycin) 1 dose .XX ASDIRECTED SCOOTER - Exam Quality Assessment: Supplemental Oxygen, Skin Breakdown (BLE) General: Moderate Distress, Lethargic, Obtunded Neck: Supple, Trachea Midline, No Thyromegaly, JVD (mild) Lungs: Clear to Auscultation, Normal Respiratory Effort, Other (occasional pursed lip breathing) Cardiovascular: Irregular Rhythm, Murmurs GI/Abdominal Exam: Normal Bowel Sounds, Soft, No Organomegaly, No Abnormal Bruit , No Mass, Pelvis Stable, Distended, Tender (Patient moans and grimace with palpation diffusely abdomen) (Female) Exam: Normal External Exam Back Exam: Normal Inspection, Full Range of Motion. No: CVA Tenderness (L), CVA Tenderness (R), Decreased Range of Motion, Muscle Spasm, Paraspinal Tenderness, Vertebral Tenderness Extremities: Normal Range of Motion, Normal Capillary Refill, Pedal Edema (+2 RLE, +1 LLE), Leg Pain (BLE), Redness (RLE, LLE) Peripheral Pulses: 1+: Radial (L), Radial (R), Posterior Tibial (L), Posterior Tibial (R), Dorsalis Pedis (L), Dorsalis Pedis (R) Skin: Warm, Dry, Intact, Other (Pallor, but improved) Neurological: No New Focal Deficit, Other (Nonverbal, but moans with pain. Some eye opening with talking. GCS 10) Psy/Mental Status: Normal Affect, Normal Mood EKG INTERPRETATION EKG Date: 08/12/18 Time: 08:24 Rhythm: A-Fib Rate (Beats/Min): 103 QRS: RBBB - Problem List Review Problem List Initiated/Reviewed/Updated: Yes - My Orders Last 24 Hours: My Active Orders 08/11/18 17:42 Blood Glucose Check, Bedside [RC] ONETIME Chest 1V Frontal [CR] Stat Head wo Cont [CT] Stat Blood Culture x2 Reflex Set [OM.PC] Stat 08/11/18 18:00 CULTURE WOUND [RM] Stat 08/11/18 18:10 CULTURE BLOOD [BC] Stat 08/11/18 18:15 CULTURE BLOOD [BC] Stat 08/11/18 18:32 Transfuse RBC [Transfuse Red Blood Cells] [COMM] Stat 08/11/18 20:10 Transfuse Fresh Frozen Plasma [COMM] Stat 08/11/18 20:15 Pantoprazole [ProTONIX IV] 80 mg Sodium Chloride 0.9% [Normal Saline] 100 ml IV .CONTINUOUS 08/11/18 20:49 Resuscitation Status Routine 08/11/18 21:00 Pharmacy to Dose - Vancomycin 1 dose .XX ONETIME ONE 08/11/18 21:49 Patient Status [ADT] Routine Bedrest Bathroom Privileges [RC] .PRN Cardiac Monitoring [RC] 0800,2000 Height and Weight [RC] .PRN Intake and Output [RC] 0600,1800 Notify Provider Vital Signs [RC] .PRN Oxygen Therapy [RC] 2355 Vital Signs [RC] 0400,0800,1200,1600,2000,0000 Acetaminophen [Tylenol] 650 mg RECTAL Q4H PRN LORazepam [Ativan] 1 mg IVPUSH Q6H PRN Morphine 2 mg IVPUSH Q2H PRN Ondansetron [Zofran] 4 mg IV Q6H PRN Antiembolic Hose [OM.PC] Per Unit Routine VTE Pharmacological Contraindications [AST] Per Unit Routine 08/11/18 Breakfast Nothing per Oral Now Diet [DIET] 08/12/18 00:00 Metoprolol Tartrate [Lopressor] 2.5 mg IVPUSH Q6H 08/12/18 02:00 Piperacillin/Tazobactam [Zosyn] 4.5 gm Sodium Chloride 0.9% [Normal Saline] 100 ml IV Q6H 08/12/18 07:42 Abdomen Pelvis wo Cont [CT] Stat 08/12/18 08:00 Chest 1V Frontal [CR] Routine Hydrocortisone [Hydrocortisone 1% Crm] 0 gm TOP QID Rivastigmine [Exelon] 4.6 mg TD DAILY EKG 12 Lead [EK] Routine 08/13/18 05:00 BASIC METABOLIC PANEL,BMP [CHEM] DAILY CBC WITH AUTO DIFF [HEME] DAILY INR,PT,PROTHROMBIN TIME [COAG] DAILY 08/14/18 05:00 BASIC METABOLIC PANEL,BMP [CHEM] DAILY CBC WITH AUTO DIFF [HEME] DAILY INR,PT,PROTHROMBIN TIME [COAG] DAILY 08/15/18 05:00 BASIC METABOLIC PANEL,BMP [CHEM] DAILY CBC WITH AUTO DIFF [HEME] DAILY INR,PT,PROTHROMBIN TIME [COAG] DAILY - Plan Plan:: This patient was admitted from the ER with complex multiple concerns. She is an ICU patient needing ICU care, but at this time patient family POA with shared managed patient decision does not want the patient transferred. They understand that may result is is probable. The patient has GI bleeding, anemia, coumadin toxicity, renal failure, unresponsive, rapid a-fib, increases blood sugars, sepsis and BLE cellulitis. I was informed today as well the patient blood cultures are growing bacteria. The patient labs are as follows 08/01/181958 hgb 5.6, INR 6.79. Patient was given 2 units of RBCs at 2100 and 2315 on 07/18. Given 2 buttons of FFP yesterday 08/11/18 at 2030 and 2130. Labs were than repeated 08/12/18 at 0359 hgb 8.0, INR 3.11. Given FFP today at 0245. Labs today at 0759 were hgb 7.1, INR 2.77. RBC 1 unit infused at 10am today and 1pm today. Labs today hgb at 1559 was 10.4, INR is 2.33. 1 FFP given at 4:45pm. So far, there have been a total during patient stay RBCs 4 given and FFP 4 given. I will recheck the patient H &H and INR again tonight around 8pm to ensure to continued drop in hgb and ensure INR is no longer toxic level. The patient will continue vancomycin and Zosyn at the dosing direction of pharmacy. Patients CR level remains elevated at 1.9 today, even after doses of Lasix to remove fluid. Patients BNP has increased to above 1500. The patient will continue her protonix gtt until PCP/scope can see the patient tomorrow and discuss with family the best plan of care. The patient has been resting comfortable. This morning she had some restlessness and moaning. The family felt she may have been uncomfortable, so Morphine has been given every 2 hours for comfort for pain. The patient does moan in pain when her legs are touched. During examination today, the patient also moans and grimace in pain when palpation of the abdomen diffusely. I ordered a no contrast ct that was unremarkable. However , the study was limited due to renal function and no IV contrast. Discussed results with the family and limitations. I have gone into the patient room 5 times today and each time have given patient updates, lab updates, and the next step of care. I have each time explained to them that she is very ill and may . I explained to the them that she may begin to become fluid overloaded and now will start to become a clotting risk once I continue to drop her INR. I also discussed that removing fluid off the body due to fluid overload from blood and her renal function, may cause damage to her kidneys. I explained that while some things may improve like her hgb, that other things may worsen and arise. Each time I have explained that she needs a higher level of care and more resources than we can offer in [place]. However, the family and POA would like to keep her here in [place], keep her comfortable, but would like to continue treatment. While also remaining DNR. A CXR today was also done to lool for pulmonary edema. The CXR shows no edema even with climbing BNP and BLE edema. I have spent many hours of critical care time with this patient since her arrival. A this time, the patient is currently getting her 4th FFP. Another H&H/INR will be drawn at 8pm. At that time, the nurse will call me with results and we will at that time decide what further products are needed, if any. Will continue with the patient Critical admit. She remains in Critical condition. The PCP will see her tomorrow and evaluate and discuss options with the family. The patient is palliative admit and has a probable chance of during this admit.
[2018-08-12] MEDS ORDERED: Furosemide 40 MG/4 ML VIAL IVPUSH ONE (09:40)
[2018-08-12] MEDS ORDERED: Sodium Chloride 0.9% 250 ML ONE (09:52)
[2018-08-12] MEDS ORDERED: Bisacodyl 10 MG Supp RECTAL PRN (14:51)
[2018-08-12] MEDS ORDERED: Sodium Chloride 0.9% 50 ML IV SCH (16:15)
[2018-08-12] MEDS ORDERED: Morphine 2 MG/ML Syringe IVPUSH PRN (19:38)
[2018-08-12] MEDS: RIVASTIGMINE 4.6 MG TD SCH (20:04)
[2018-08-12] MEDS ORDERED: Sodium Chloride 0.9% 100 ML ONE (20:20)
--- NOTE | 2018-08-12 21:52 | PCM.SN ---
- Free Text/Narrative Note: Patient hgb is 10.3 and INR is 1.9. At this time, no changes. Will allow PCP to see patient tomorrow and discuss treatment plan. Labs will be drawn again in the morning.
[2018-08-13] MEDS: Metoprolol Tartrate 5 MG/5 ML SDV IVPUSH SCH ×5 (00:09→23:38)
[2018-08-13] MEDS: Piperacillin/Tazobactam 4.5 GM in Sodium Chloride 0.9% 100 ML IV SCH ×2 (02:11→09:06)
[2018-08-13] MEDS ORDERED: Piperacillin/Tazobactam 2.25 GM in Sodium Chloride 0.9% 100 ML IV SCH ×2 (08:00→08:30)
[2018-08-13] MEDS: Acetaminophen 650 MG Supp RECTAL PRN (08:05)
[2018-08-13] MEDS: Pantoprazole 80 MG in Sodium Chloride 0.9% 100 ML IV SCH ×2 (09:03→19:26)
[2018-08-13] MEDS: Morphine 2 MG/ML Syringe IVPUSH PRN (09:52)
[2018-08-13] MEDS: Vancomycin 1.5 GM in Sodium Chloride 0.9% 500 ML IV SCH ×3 (12:03)
[2018-08-13] MEDS: cefTRIAXone 1 GM Vial IVPUSH SCH (12:03)
[2018-08-13] MEDS: RIVASTIGMINE 4.6 MG TD SCH (19:25)
--- NOTE | 2018-08-13 20:26 | PCM.PN ---
- General Info Date of Service: 08/13/18 Admission Dx/Problem (Free Text): Anemia Renal Failure Sepsis Bilateral lower extremity cellulitis Subjective Update: patient unresponsive~ unable to obtain review of symptoms - Patient Data Vitals - Most Recent: Last Vital Signs Temp 98.4 F 08/13/18 16:00 Pulse 124 H 08/13/18 17:49 Resp 16 08/13/18 16:00 BP 124/57 L 08/13/18 17:49 Pulse Ox 93 L 08/13/18 16:00 Weight - Most Recent: 206 lb 3.2 oz I&O - Last 24 Hours: Intake & Output 08/13/18 08/13/18 08/13/18 06:59 14:59 22:59 Output Total 750 1000 Balance -750 -1000 Lab Results Last 24 Hours: Laboratory Results - last 24 hr 08/13/18 08/13/18 08/13/18 Range/Units 07:55 07:55 07:55 WBC 12.5 H (5.0-10.0) 10^3/uL Corrected WBC 10.1 H (5.0-10.0) 10^3/uL RBC 3.78 L (4.00-5.50) 10^6/uL Hgb 10.5 L (12.0-16.0) g/dL Hct 32.6 L (37.0-47.0) % MCV 86.2 (82.0-94.0) fL MCH 27.5 (27.0-32.0) pg MCHC 31.9 L (33.0-38.0) g/dL RDW Coeff of Kendall 22.2 H (11.0-15.0) % Plt Count 31 L* (150-400) 10^3/uL Add Manual Diff Yes Neutrophils % (Manual) 74 (35-85) % Band Neutrophils % 8 H (0-5) % Lymphocytes % (Manual) 7 L (21-55) % Monocytes % (Manual) 11 (2-12) % Absolute Neutrophils 10.25 H (1.80-7.00) 10^3/uL Lymphocytes # (Manual) 0.88 L (1.00-4.80) 10^3/uL Monocytes # (Manual) 1.38 H (0.00-0.80) 10^3/uL Nucleated RBCs 24 H (0-5) /100WBC Platelet Estimate Decreased L (ADEQUATE) Anisocytosis 2+ moderate H (NOT SEEN) Marie Cells 1+ slight H (NOT SEEN) Elliptocytes Few (NOT SEEN) PT 16.2 H (9.7-12.3) SEC INR 1.61 H (0.92-1.18) Sodium 151 H (136-145) mEq/L Potassium 3.3 L (3.5-5.0) mEq/L Chloride 110 H (98-106) mEq/L Carbon Dioxide 33 H (21-32) mmol/L BUN 57 H (7-18) mg/dL Creatinine 1.7 H (0.6-1.0) mg/dL Est Cr Clr Drug Dosing 19.83 mL/min Estimated GFR (MDRD) 29 L (>=60) mL/min Glucose 169 H D (75-99) mg/dL Calcium 8.4 (8.4-10.1) mg/dL NT-Pro-B Natriuret Pep 5725 H (0-1000) pg/mL Vancomycin Trough 6.7 L (10-20) ug/mL Heri Results Last 24 Hours: Microbiology 08/11/18 18:10 Aerobic Blood Culture - Final Blood - Venous Streptococcus Group A Anaerobic Blood Culture - Final Streptococcus Group A 08/11/18 18:15 Aerobic Blood Culture - Final Blood - Venous - Lab Draw Streptococcus Group A Anaerobic Blood Culture - Final Streptococcus Group A 08/11/18 18:00 Wound Culture - Final Leg, Left Staphylococcus Aureus Med Orders - Current: Current Medications Acetaminophen (Tylenol) 650 mg RECTAL Q4H PRN PRN Reason: Mild pain/fever Last Admin: 08/13/18 08:05 Dose: 650 mg Bisacodyl (Dulcolax) 10 mg RECTAL DAILY PRN PRN Reason: Constipation Last Admin: 08/12/18 15:00 Dose: 10 mg Ceftriaxone Sodium (Rocephin) 1 gm IVPUSH Q24H SCOOTER Last Admin: 08/13/18 12:03 Dose: 1 gm Pantoprazole Sodium 80 mg/ (Sodium Chloride) 100 mls @ 10 mls/hr IV .CONTINUOUS SCOOTER Last Admin: 08/13/18 19:26 Dose: 10 mls/hr Sodium Chloride (Normal Saline) 50 mls @ 1 mls/hr IV ASDIRECTED SCOOTER Vancomycin HCl 1 gm/Vancomycin HCl 500 mg/ Sodium Chloride 500 mls @ 333.333 mls/hr IV DAILY@1200 [facility] Last Admin: 08/13/18 12:03 Dose: 333.333 mls/hr Lorazepam (Ativan) 1 mg IVPUSH Q6H PRN PRN Reason: Anxiety Metoprolol Tartrate (Lopressor) 2.5 mg IVPUSH Q6H [facility] Last Admin: 08/13/18 17:49 Dose: 2.5 mg Morphine Sulfate (Morphine Sulfate) 2 mg IV Q2H PRN PRN Reason: Pain (severe 7-10) Last Admin: 08/13/18 17:49 Dose: 2 mg Rivastigmine [Exelon (] 4.6 MgOwn Med) 4.6 mg TD DAILY@1999 [facility] Last Admin: 08/13/18 19:25 Dose: 4.6 mg Ondansetron HCl (Zofran) 4 mg IV Q6H PRN PRN Reason: Nausea/Vomiting Vancomycin HCl (Pharmacy To Dose - Vancomycin) 1 dose .XX DAILY [facility] Discontinued Medications Furosemide (Lasix) 40 mg IVPUSH ONETIME ONE Stop: 08/11/18 20:16 Last Admin: 08/11/18 23:09 Dose: 40 mg Furosemide (Lasix) 40 mg IVPUSH ONETIME ONE Stop: 08/12/18 09:41 Last Admin: 08/12/18 12:24 Dose: 40 mg Hydrocortisone (Hydrocortisone 1% Crm) 0 gm TOP QID [facility] Last Admin: 08/12/18 10:59 Dose: Not Given Piperacillin Sod/Tazobactam (Sod 4.5 gm/ Sodium Chloride) 100 mls @ 200 mls/hr IV NOW STA Stop: 08/11/18 20:39 Last Admin: 08/11/18 20:50 Dose: 200 mls/hr Vancomycin HCl 1.5 gm/ Sodium (Chloride) 500 mls @ 250 mls/hr IV Q24H [facility] Stop: 08/11/18 22:59 Last Admin: 08/11/18 21:29 Dose: 250 mls/hr Sodium Chloride (Normal Saline) Confirm Administered Dose 250 mls @ as directed .ROUTE .STK-MED ONE Stop: 08/11/18 20:52 Last Admin: 08/11/18 20:56 Dose: 150 mls/hr Piperacillin Sod/Tazobactam (Sod 4.5 gm/ Sodium Chloride) 100 mls @ 200 mls/hr IV Q6H [facility] Last Admin: 08/11/18 23:29 Dose: Not Given Piperacillin Sod/Tazobactam (Sod 4.5 gm/ Sodium Chloride) 100 mls @ 200 mls/hr IV Q6H [facility] Last Admin: 08/13/18 09:06 Dose: Not Given Sodium Chloride (Normal Saline) 250 mls @ 150 mls/hr IV ASDIRECTED [facility] Sodium Chloride (Normal Saline) Confirm Administered Dose 250 mls @ as directed .ROUTE .STK-MED ONE Stop: 08/12/18 09:53 Last Admin: 08/12/18 14:48 Dose: 150 mls/hr Sodium Chloride (Normal Saline) Confirm Administered Dose 100 mls @ as directed .ROUTE .STK-MED ONE Stop: 08/12/18 20:21 Last Admin: 08/12/18 20:29 Dose: 10 mls/hr Piperacillin Sod/Tazobactam (Sod 2.25 gm/ Sodium Chloride) 100 mls @ 200 mls/ hr IV Q8H [facility] Piperacillin Sod/Tazobactam (Sod 2.25 gm/ Sodium Chloride) 100 mls @ 200 mls/ hr IV 0000,0800,1600 [facility] Last Admin: 08/13/18 08:47 Dose: 200 mls/hr Metoprolol Tartrate (Lopressor) 2.5 mg IVPUSH Q6H [facility] Last Admin: 08/12/18 01:03 Dose: Not Given Morphine Sulfate (Morphine) 2 mg IVPUSH Q2H PRN PRN Reason: Pain (severe 7-10) Last Admin: 08/13/18 09:52 Dose: 2 mg Morphine Sulfate (Morphine Sulfate) Confirm Administered Dose 4 mg IV .STK-MED ONE Stop: 08/12/18 18:22 Last Admin: 08/12/18 18:35 Dose: Not Given Morphine Sulfate (Morphine) 2 mg IVPUSH Q2H PRN PRN Reason: Pain Non-Formulary Medication (Rivastigmine [Exelon]) 4.6 mg TD DAILY [facility] Last Admin: 08/12/18 08:02 Dose: Not Given Pantoprazole Sodium (Protonix Iv) 80 mg IVPUSH ONETIME ONE Stop: 08/11/18 20:11 Last Admin: 08/11/18 20:41 Dose: 80 mg Pantoprazole Sodium (Protonix Iv) Confirm Administered Dose 40 mg .ROUTE .STK -MED ONE Stop: 08/12/18 07:45 Last Admin: 08/12/18 08:02 Dose: Not Given Phytonadione (Aquamephyton) 10 mg SUBCUT ONETIME ONE Stop: 08/11/18 20:10 Last Admin: 08/11/18 20:43 Dose: 10 mg Vancomycin HCl (Pharmacy To Dose - Vancomycin) 1 dose .XX ASDIRECTED SCOOTER - Exam Quality Assessment: Supplemental Oxygen General: Other (unresponsive) HEENT: No: Mucous Membr. Moist/[place] Lungs: Clear to Auscultation, Decreased Breath Sounds Cardiovascular: Irregular Rhythm GI/Abdominal Exam: Normal Bowel Sounds, Soft Extremities: Pedal Edema Skin: Warm, Dry - Problem List & Annotations (1) Palliative care patient SNOMED Code(s): 522738085 Code(s): Z51.5 - ENCOUNTER FOR PALLIATIVE CARE Status: Acute Priority: High Current Visit: Yes (2) Afib SNOMED Code(s): 05497046 Code(s): I48.91 - UNSPECIFIED ATRIAL FIBRILLATION Status: Acute Priority : High Current Visit: Yes Qualifiers: Atrial fibrillation type: chronic Qualified Code(s): I48.2 - Chronic atrial fibrillation (3) Altered mental status SNOMED Code(s): 118410875 Code(s): R41.82 - ALTERED MENTAL STATUS, UNSPECIFIED Status: Acute Priority: High Current Visit: Yes Qualifiers: Altered mental status type: unspecified Qualified Code(s): R41.82 - Altered mental status, unspecified (4) Anemia SNOMED Code(s): 110549540 Code(s): D64.9 - ANEMIA, UNSPECIFIED Status: Acute Current Visit: No Qualifiers: Anemia type: unspecified type Qualified Code(s): D64.9 - Anemia, unspecified (5) Cellulitis SNOMED Code(s): 870771404 Code(s): L03.90 - CELLULITIS, UNSPECIFIED Status: Acute Priority: High Current Visit: Yes Onset Date: 03/05/14 (6) Renal failure SNOMED Code(s): 43803091 Code(s): N19 - UNSPECIFIED KIDNEY FAILURE Status: Acute Priority: High Current Visit: Yes Qualifiers: Renal failure chronicity: acute Acute renal failure type: unspecified Qualified Code(s): N17.9 - Acute kidney failure, unspecified - Problem List Review Problem List Initiated/Reviewed/Updated: Yes - My Orders Last 24 Hours: My Active Orders 08/13/18 12:00 Vancomycin 1 gm Vancomycin 500 mg Sodium Chloride 0.9% [Normal Saline] 500 ml IV DAILY@1200 cefTRIAXone [Rocephin] 1 gm IVPUSH Q24H - Assessment Assessment:: Anemia Cellulitis Renal Failure Sepsis Palliative care patient - Plan Plan:: This patient was admitted from the ER with complex multiple concerns. She is an ICU patient needing ICU care, but at this time patient family POA with shared managed patient decision does not want the patient transferred. They understand that may result is is probable. The patient has GI bleeding, anemia, coumadin toxicity, renal failure, unresponsive, rapid a-fib, increases blood sugars, sepsis and BLE cellulitis. I was informed today as well the patient blood cultures are growing bacteria. The patient labs are as follows 08/01/181958 hgb 5.6, INR 6.79. Patient was given 2 units of RBCs at 2100 and 2315 on 07/18. Given 2 buttons of FFP yesterday 08/11/18 at 2030 and 2130. Labs were than repeated 08/12/18 at 0359 hgb 8.0, INR 3.11. Given FFP today at 0245. Labs today at 0759 were hgb 7.1, INR 2.77. RBC 1 unit infused at 10am today and 1pm today. Labs today hgb at 1559 was 10.4, INR is 2.33. 1 FFP given at 4:45pm. So far, there have been a total during patient stay RBCs 4 given and FFP 4 given. I will recheck the patient H &H and INR again tonight around 8pm to ensure to continued drop in hgb and ensure INR is no longer toxic level. The patient will continue vancomycin and Zosyn at the dosing direction of pharmacy. Patients CR level remains elevated at 1.9 today, even after doses of Lasix to remove fluid. Patients BNP has increased to above 1500. The patient will continue her protonix gtt until PCP/scope can see the patient tomorrow and discuss with family the best plan of care. The patient has been resting comfortable. This morning she had some restlessness and moaning. The family felt she may have been uncomfortable, so Morphine has been given every 2 hours for comfort for pain. The patient does moan in pain when her legs are touched. During examination today, the patient also moans and grimace in pain when palpation of the abdomen diffusely. I ordered a no contrast ct that was unremarkable. However , the study was limited due to renal function and no IV contrast. Discussed results with the family and limitations. I have gone into the patient room 5 times today and each time have given patient updates, lab updates, and the next step of care. I have each time explained to them that she is very ill and may . I explained to the them that she may begin to become fluid overloaded and now will start to become a clotting risk once I continue to drop her INR. I also discussed that removing fluid off the body due to fluid overload from blood and her renal function, may cause damage to her kidneys. I explained that while some things may improve like her hgb, that other things may worsen and arise. Each time I have explained that she needs a higher level of care and more resources than we can offer in [place]. However, the family and POA would like to keep her here in [place], keep her comfortable, but would like to continue treatment. While also remaining DNR. A CXR today was also done to lool for pulmonary edema. The CXR shows no edema even with climbing BNP and BLE edema. I have spent many hours of critical care time with this patient since her arrival. A this time, the patient is currently getting her 4th FFP. Another H&H/INR will be drawn at 8pm. At that time, the nurse will call me with results and we will at that time decide what further products are needed, if any. Will continue with the patient Critical admit. She remains in Critical condition. The PCP will see her tomorrow and evaluate and discuss options with the family. The patient is palliative admit and has a probable chance of during this admit. 08-13-2018 Palliative care patient admitted from [facility] with multiple concerns of cellulitis, renal failure, coumadin toxicity, anemia, heart failure and sepsis. Had noted anemia with hemoglobin at 5.1, has been given 4 units of PRBC and due to supratherapeutic INR, 4 units of fresh frozen plasma. Patient remains unresponsive, does grimace at times with palpation of her lower extremities. Has been NPO since admit. ProBNP elevated on admission and thereafter, was given IV Lasix. Has had good urine output. Creatinine was elevated on admit at 1.9. Is currently on IV Vancomycin and Zosyn. IV Protonix drip. No change in status since admission. Family has been at bedtime. Family aware of circumstances surrounding sepsis, renal failure, anemia, heart failure and limited response to measures done yet at this point. Labs today do note slight improvement at 12.5. Hemoglobin stable at 10.5. INR today 1.61. CRP 19 today. Blood cultures today showed group B strep. Wound cultures show staph aureus. Temp 100.3, low grade fevers at times. Bilateral lower extremities do have redness and open wounds, right worse than left. Serous drainage noted on bandages. Again discussed need for treatment versus transfer with family. They do want to keep status as DNR, treat here and see how patient progresses/declines. They are well aware of poor prognosis at this point. Due to culture report, will switch patient from Zosyn to Rocephin and continue VAncomycin. Oxygen. Monitor urine output. Repeat labs in am.
[2018-08-14] MEDS: Metoprolol Tartrate 5 MG/5 ML SDV IVPUSH SCH ×4 (05:37→23:02)
[2018-08-14] MEDS: Pantoprazole 80 MG in Sodium Chloride 0.9% 100 ML IV SCH (07:20)
[2018-08-14] MEDS: Sodium Chloride 0.45% with KCl 1,000 ML IV SCH (09:37)
[2018-08-14] MEDS: Pantoprazole 40 MG Vial IVPUSH SCH (09:37)
[2018-08-14] MEDS: Vancomycin 1.5 GM in Sodium Chloride 0.9% 500 ML IV SCH ×3 (12:50)
[2018-08-14] MEDS: cefTRIAXone 1 GM Vial IVPUSH SCH (12:55)
--- NOTE | 2018-08-14 21:11 | PCM.PN ---
- General Info Date of Service: 08/14/18 Admission Dx/Problem (Free Text): Anemia Renal Failure Sepsis Bilateral lower extremity cellulitis Subjective Update: Patient does open eyes today with stimulation. No vocal response this am. Unable to obtain ROS - Patient Data Vitals - Most Recent: Last Vital Signs Temp 97.0 F 08/14/18 19:33 Pulse 129 H 08/14/18 19:33 Resp 20 08/14/18 19:33 BP 155/84 H 08/14/18 19:33 Pulse Ox 94 L 08/14/18 19:33 Weight - Most Recent: 208 lb 4.8 oz I&O - Last 24 Hours: Intake & Output 08/14/18 08/14/18 08/14/18 06:59 14:59 22:59 Output Total 650 700 Balance -650 -700 Lab Results Last 24 Hours: Laboratory Results - last 24 hr 08/14/18 08/14/18 08/14/18 Range/Units 07:00 07:00 07:00 WBC 8.9 (5.0-10.0) 10^3/uL Corrected WBC 7.3 (5.0-10.0) 10^3/uL RBC 3.88 L (4.00-5.50) 10^6/uL Hgb 10.6 L (12.0-16.0) g/dL Hct 34.2 L (37.0-47.0) % MCV 88.1 (82.0-94.0) fL MCH 27.3 (27.0-32.0) pg MCHC 31.0 L (33.0-38.0) g/dL RDW Coeff of Kendall 22.5 H (11.0-15.0) % Plt Count 31 L* (150-400) 10^3/uL Add Manual Diff Yes Neutrophils % (Manual) 72 (35-85) % Band Neutrophils % 3 (0-5) % Lymphocytes % (Manual) 19 L (21-55) % Monocytes % (Manual) 6 (2-12) % Absolute Neutrophils 6.68 (1.80-7.00) 10^3/uL Lymphocytes # (Manual) 1.69 (1.00-4.80) 10^3/uL Monocytes # (Manual) 0.53 (0.00-0.80) 10^3/uL Nucleated RBCs 22 H (0-5) /100WBC Platelet Estimate Decreased L (ADEQUATE) Polychromasia 1+ slight H (NOT SEEN) Anisocytosis 2+ moderate H (NOT SEEN) PT 13.7 H (9.7-12.3) SEC INR 1.35 H (0.92-1.18) Sodium 155 H (136-145) mEq/L Potassium 2.9 L* (3.5-5.0) mEq/L Chloride 113 H (98-106) mEq/L Carbon Dioxide 34 H (21-32) mmol/L BUN 50 H (7-18) mg/dL Creatinine 1.3 H (0.6-1.0) mg/dL Est Cr Clr Drug Dosing 25.93 mL/min Estimated GFR (MDRD) 39 L (>=60) mL/min Glucose 191 H (75-99) mg/dL Calcium 8.7 (8.4-10.1) mg/dL NT-Pro-B Natriuret Pep 5161 H (0-1000) pg/mL Med Orders - Current: Current Medications Acetaminophen (Tylenol) 650 mg RECTAL Q4H PRN PRN Reason: Mild pain/fever Last Admin: 08/13/18 08:05 Dose: 650 mg Bisacodyl (Dulcolax) 10 mg RECTAL DAILY PRN PRN Reason: Constipation Last Admin: 08/12/18 15:00 Dose: 10 mg Ceftriaxone Sodium (Rocephin) 1 gm IVPUSH Q24H [facility] Last Admin: 08/14/18 12:55 Dose: 1 gm Sodium Chloride (Normal Saline) 50 mls @ 1 mls/hr IV ASDIRECTED [facility] Vancomycin HCl 1 gm/Vancomycin HCl 500 mg/ Sodium Chloride 500 mls @ 333.333 mls/hr IV DAILY@1200 [facility] Last Admin: 08/14/18 12:50 Dose: 333.333 mls/hr Potassium Chloride/Sodium Chloride (1/2 Ns With 20 Meq Kcl) 1,000 mls @ 125 mls /hr IV ASDIRECTED [facility] Last Admin: 08/14/18 09:37 Dose: 125 mls/hr Lorazepam (Ativan) 1 mg IVPUSH Q6H PRN PRN Reason: Anxiety Metoprolol Tartrate (Lopressor) 2.5 mg IVPUSH Q6H [facility] Last Admin: 08/14/18 17:54 Dose: 2.5 mg Morphine Sulfate (Morphine Sulfate) 2 mg IV Q2H PRN PRN Reason: Pain (severe 7-10) Last Admin: 08/14/18 15:52 Dose: 2 mg Rivastigmine [Exelon (] 4.6 MgOwn Med) 4.6 mg TD DAILY@1999 [facility] Last Admin: 08/13/18 19:25 Dose: 4.6 mg Ondansetron HCl (Zofran) 4 mg IV Q6H PRN PRN Reason: Nausea/Vomiting Pantoprazole Sodium (Protonix Iv) 40 mg IVPUSH 0800 [facility] Last Admin: 08/14/18 09:37 Dose: 40 mg Vancomycin HCl (Pharmacy To Dose - Vancomycin) 1 dose .XX DAILY [facility] Discontinued Medications Furosemide (Lasix) 40 mg IVPUSH ONETIME ONE Stop: 08/11/18 20:16 Last Admin: 08/11/18 23:09 Dose: 40 mg Furosemide (Lasix) 40 mg IVPUSH ONETIME ONE Stop: 08/12/18 09:41 Last Admin: 08/12/18 12:24 Dose: 40 mg Hydrocortisone (Hydrocortisone 1% Crm) 0 gm TOP QID [facility] Last Admin: 08/12/18 10:59 Dose: Not Given Pantoprazole Sodium 80 mg/ (Sodium Chloride) 100 mls @ 10 mls/hr IV .CONTINUOUS [facility] Last Admin: 08/14/18 07:20 Dose: 10 mls/hr Piperacillin Sod/Tazobactam (Sod 4.5 gm/ Sodium Chloride) 100 mls @ 200 mls/hr IV NOW STA Stop: 08/11/18 20:39 Last Admin: 08/11/18 20:50 Dose: 200 mls/hr Vancomycin HCl 1.5 gm/ Sodium (Chloride) 500 mls @ 250 mls/hr IV Q24H [facility] Stop: 08/11/18 22:59 Last Admin: 08/11/18 21:29 Dose: 250 mls/hr Sodium Chloride (Normal Saline) Confirm Administered Dose 250 mls @ as directed .ROUTE .STK-MED ONE Stop: 08/11/18 20:52 Last Admin: 08/11/18 20:56 Dose: 150 mls/hr Piperacillin Sod/Tazobactam (Sod 4.5 gm/ Sodium Chloride) 100 mls @ 200 mls/hr IV Q6H [facility] Last Admin: 08/11/18 23:29 Dose: Not Given Piperacillin Sod/Tazobactam (Sod 4.5 gm/ Sodium Chloride) 100 mls @ 200 mls/hr IV Q6H [facility] Last Admin: 08/13/18 09:06 Dose: Not Given Sodium Chloride (Normal Saline) 250 mls @ 150 mls/hr IV ASDIRECTED [facility] Sodium Chloride (Normal Saline) Confirm Administered Dose 250 mls @ as directed .ROUTE .STK-MED ONE Stop: 08/12/18 09:53 Last Admin: 08/12/18 14:48 Dose: 150 mls/hr Sodium Chloride (Normal Saline) Confirm Administered Dose 100 mls @ as directed .ROUTE .K-MED ONE Stop: 08/12/18 20:21 Last Admin: 08/12/18 20:29 Dose: 10 mls/hr Piperacillin Sod/Tazobactam (Sod 2.25 gm/ Sodium Chloride) 100 mls @ 200 mls/ hr IV Q8H [facility] Piperacillin Sod/Tazobactam (Sod 2.25 gm/ Sodium Chloride) 100 mls @ 200 mls/ hr IV 0000,0800,1600 [facility] Last Admin: 08/13/18 08:47 Dose: 200 mls/hr Metoprolol Tartrate (Lopressor) 2.5 mg IVPUSH Q6H [facility] Last Admin: 08/12/18 01:03 Dose: Not Given Morphine Sulfate (Morphine) 2 mg IVPUSH Q2H PRN PRN Reason: Pain (severe 7-10) Last Admin: 08/13/18 09:52 Dose: 2 mg Morphine Sulfate (Morphine Sulfate) Confirm Administered Dose 4 mg IV .STK-MED ONE Stop: 08/12/18 18:22 Last Admin: 08/12/18 18:35 Dose: Not Given Morphine Sulfate (Morphine) 2 mg IVPUSH Q2H PRN PRN Reason: Pain Non-Formulary Medication (Rivastigmine [Exelon]) 4.6 mg TD DAILY [facility] Last Admin: 08/12/18 08:02 Dose: Not Given Pantoprazole Sodium (Protonix Iv) 80 mg IVPUSH ONETIME ONE Stop: 08/11/18 20:11 Last Admin: 08/11/18 20:41 Dose: 80 mg Pantoprazole Sodium (Protonix Iv) Confirm Administered Dose 40 mg .ROUTE .STK -MED ONE Stop: 08/12/18 07:45 Last Admin: 08/12/18 08:02 Dose: Not Given Phytonadione (Aquamephyton) 10 mg SUBCUT ONETIME ONE Stop: 08/11/18 20:10 Last Admin: 08/11/18 20:43 Dose: 10 mg Vancomycin HCl (Pharmacy To Dose - Vancomycin) 1 dose .XX ASDIRECTED SCOOTER - Exam Quality Assessment: Supplemental Oxygen General: Lethargic Neck: Supple Lungs: Decreased Breath Sounds Cardiovascular: Irregular Rhythm GI/Abdominal Exam: Normal Bowel Sounds, Soft, Non-Tender Extremities: Normal Inspection, Pedal Edema Skin: Warm, Dry Wound/Incisions: Other (erythema persistent to lower extremities, right greater than left. Bandages intact) - Problem List & Annotations (1) Palliative care patient SNOMED Code(s): 436262567 Code(s): Z51.5 - ENCOUNTER FOR PALLIATIVE CARE Status: Acute Priority: High Current Visit: Yes (2) Afib SNOMED Code(s): 29494360 Code(s): I48.91 - UNSPECIFIED ATRIAL FIBRILLATION Status: Acute Priority : High Current Visit: Yes Qualifiers: Atrial fibrillation type: chronic Qualified Code(s): I48.2 - Chronic atrial fibrillation (3) Altered mental status SNOMED Code(s): 245750825 Code(s): R41.82 - ALTERED MENTAL STATUS, UNSPECIFIED Status: Acute Priority: High Current Visit: Yes Qualifiers: Altered mental status type: unspecified Qualified Code(s): R41.82 - Altered mental status, unspecified (4) Anemia SNOMED Code(s): 598236374 Code(s): D64.9 - ANEMIA, UNSPECIFIED Status: Acute Current Visit: No Qualifiers: Anemia type: unspecified type Qualified Code(s): D64.9 - Anemia, unspecified (5) Cellulitis SNOMED Code(s): 481647836 Code(s): L03.90 - CELLULITIS, UNSPECIFIED Status: Acute Priority: High Current Visit: Yes Onset Date: 03/05/14 (6) Renal failure SNOMED Code(s): 57358643 Code(s): N19 - UNSPECIFIED KIDNEY FAILURE Status: Acute Priority: High Current Visit: Yes Qualifiers: Renal failure chronicity: acute Acute renal failure type: unspecified Qualified Code(s): N17.9 - Acute kidney failure, unspecified - Problem List Review Problem List Initiated/Reviewed/Updated: Yes - My Orders Last 24 Hours: My Active Orders 08/14/18 09:15 Pantoprazole [ProTONIX IV] 40 mg IVPUSH 0800 Sodium Chloride 0.45% with KCl [1/2 NS with 20 mEq KCl] 1,000 ml IV ASDIRECTED - Assessment Assessment:: Anemia Cellulitis Renal Failure Sepsis Palliative care patient - Plan Plan:: This patient was admitted from the ER with complex multiple concerns. She is an ICU patient needing ICU care, but at this time patient family POA with shared managed patient decision does not want the patient transferred. They understand that may result is is probable. The patient has GI bleeding, anemia, coumadin toxicity, renal failure, unresponsive, rapid a-fib, increases blood sugars, sepsis and BLE cellulitis. I was informed today as well the patient blood cultures are growing bacteria. The patient labs are as follows 08/01/181958 hgb 5.6, INR 6.79. Patient was given 2 units of RBCs at 2100 and 2315 on 07/18. Given 2 buttons of FFP yesterday 08/11/18 at 2030 and 2130. Labs were than repeated 08/12/18 at 0359 hgb 8.0, INR 3.11. Given FFP today at 0245. Labs today at 0759 were hgb 7.1, INR 2.77. RBC 1 unit infused at 10am today and 1pm today. Labs today hgb at 1559 was 10.4, INR is 2.33. 1 FFP given at 4:45pm. So far, there have been a total during patient stay RBCs 4 given and FFP 4 given. I will recheck the patient H &H and INR again tonight around 8pm to ensure to continued drop in hgb and ensure INR is no longer toxic level. The patient will continue vancomycin and Zosyn at the dosing direction of pharmacy. Patients CR level remains elevated at 1.9 today, even after doses of Lasix to remove fluid. Patients BNP has increased to above 1500. The patient will continue her protonix gtt until PCP/scope can see the patient tomorrow and discuss with family the best plan of care. The patient has been resting comfortable. This morning she had some restlessness and moaning. The family felt she may have been uncomfortable, so Morphine has been given every 2 hours for comfort for pain. The patient does moan in pain when her legs are touched. During examination today, the patient also moans and grimace in pain when palpation of the abdomen diffusely. I ordered a no contrast ct that was unremarkable. However , the study was limited due to renal function and no IV contrast. Discussed results with the family and limitations. I have gone into the patient room 5 times today and each time have given patient updates, lab updates, and the next step of care. I have each time explained to them that she is very ill and may . I explained to the them that she may begin to become fluid overloaded and now will start to become a clotting risk once I continue to drop her INR. I also discussed that removing fluid off the body due to fluid overload from blood and her renal function, may cause damage to her kidneys. I explained that while some things may improve like her hgb, that other things may worsen and arise. Each time I have explained that she needs a higher level of care and more resources than we can offer in [place]. However, the family and POA would like to keep her here in [place], keep her comfortable, but would like to continue treatment. While also remaining DNR. A CXR today was also done to lool for pulmonary edema. The CXR shows no edema even with climbing BNP and BLE edema. I have spent many hours of critical care time with this patient since her arrival. A this time, the patient is currently getting her 4th FFP. Another H&H/INR will be drawn at 8pm. At that time, the nurse will call me with results and we will at that time decide what further products are needed, if any. Will continue with the patient Critical admit. She remains in Critical condition. The PCP will see her tomorrow and evaluate and discuss options with the family. The patient is palliative admit and has a probable chance of during this admit. 08-13-2018 Palliative care patient admitted from [facility] with multiple concerns of cellulitis, renal failure, coumadin toxicity, anemia, heart failure and sepsis. Had noted anemia with hemoglobin at 5.1, has been given 4 units of PRBC and due to supratherapeutic INR, 4 units of fresh frozen plasma. Patient remains unresponsive, does grimace at times with palpation of her lower extremities. Has been NPO since admit. ProBNP elevated on admission and thereafter, was given IV Lasix. Has had good urine output. Creatinine was elevated on admit at 1.9. Is currently on IV Vancomycin and Zosyn. IV Protonix drip. No change in status since admission. Family has been at bedtime. Family aware of circumstances surrounding sepsis, renal failure, anemia, heart failure and limited response to measures done yet at this point. Labs today do note slight improvement at 12.5. Hemoglobin stable at 10.5. INR today 1.61. CRP 19 today. Blood cultures today showed group B strep. Wound cultures show staph aureus. Temp 100.3, low grade fevers at times. Bilateral lower extremities do have redness and open wounds, right worse than left. Serous drainage noted on bandages. Again discussed need for treatment versus transfer with family. They do want to keep status as DNR, treat here and see how patient progresses/declines. They are well aware of poor prognosis at this point. Due to culture report, will switch patient from Zosyn to Rocephin and continue VAncomycin. Oxygen. Monitor urine output. Repeat labs in am. 08-14-2018 Patient does open eyes this am with stimulation. No vocal response. Family relates that she did say "okay and bye" yesterday. Color improved this am. Does continue to have urine output but quite concentrated. Lung sounds diminished but clear. Heart rhythm irregular, rate 120s. Low grade temps noted yet. WBC stable this am at 8.9, platelets down to 31. creatinine 1.3. Potassium low at 2.9. Will continue Vancomycin and Rocephin. Start 1/2 NS with 20 meq KCL at 125 ml/ hr. Repeat labs in am. Inappropriate for discharge.
[2018-08-14] MEDS: RIVASTIGMINE 4.6 MG TD SCH (21:30)
[2018-08-15] MEDS: Sodium Chloride 0.45% with KCl 1,000 ML IV SCH ×3 (01:22→17:17)
[2018-08-15] MEDS: Metoprolol Tartrate 5 MG/5 ML SDV IVPUSH SCH ×3 (05:33→17:51)
[2018-08-15] MEDS: Pantoprazole 40 MG Vial IVPUSH SCH (07:54)
[2018-08-15] MEDS: Diltiazem 100 MG in Sodium Chloride 0.9% 100 ML IV SCH ×2 (09:37→21:38)
[2018-08-15] MEDS: cefTRIAXone 1 GM Vial IVPUSH SCH (11:59)
[2018-08-15] MEDS: Vancomycin 1.5 GM in Sodium Chloride 0.9% 500 ML IV SCH ×3 (13:57)
[2018-08-15] MEDS: Acetaminophen 650 MG Supp RECTAL PRN (16:40)
--- NOTE | 2018-08-15 20:03 | PCM.PN ---
- General Info Date of Service: 08/15/18 Admission Dx/Problem (Free Text): Anemia Renal Failure Sepsis Bilateral lower extremity cellulitis Functional Status: Reports: Other (patient lethargic. Unable to obtain ROS. Sedated this am, was just given morphine at time of this exam. Family reports was more alert last evening.) - Patient Data Vitals - Most Recent: Last Vital Signs Temp 98.9 F 08/15/18 19:45 Pulse 116 H 08/15/18 19:45 Resp 20 08/15/18 19:45 BP 90/71 08/15/18 19:45 Pulse Ox 92 L 08/15/18 19:45 Weight - Most Recent: 208 lb 4.8 oz I&O - Last 24 Hours: Intake & Output 08/15/18 08/15/18 08/15/18 06:59 14:59 22:59 Intake Total 956 1000 Output Total 500 425 Balance -500 956 575 Lab Results Last 24 Hours: Laboratory Results - last 24 hr 08/15/18 08/15/18 08/15/18 Range/Units 11:36 11:36 11:36 WBC 6.9 (5.0-10.0) 10^3/uL Corrected WBC 4.4 L (5.0-10.0) 10^3/uL RBC 4.20 (4.00-5.50) 10^6/uL Hgb 11.6 L (12.0-16.0) g/dL Hct 38.4 (37.0-47.0) % MCV 91.4 (82.0-94.0) fL MCH 27.6 (27.0-32.0) pg MCHC 30.2 L (33.0-38.0) g/dL RDW Coeff of Kendall 23.9 H (11.0-15.0) % Plt Count 20 L* (150-400) 10^3/uL Add Manual Diff Yes Neutrophils % (Manual) 56 (35-85) % Lymphocytes % (Manual) 31 (21-55) % Monocytes % (Manual) 11 (2-12) % Blast Cells % 2 % Absolute Neutrophils 3.86 (1.80-7.00) 10^3/uL Lymphocytes # (Manual) 2.14 (1.00-4.80) 10^3/uL Monocytes # (Manual) 0.76 (0.00-0.80) 10^3/uL Nucleated RBCs 58 H (0-5) /100WBC Platelet Estimate Marked dec L (ADEQUATE) Poikilocytosis 2+ moderate H (NOT SEEN) Anisocytosis 2+ moderate H (NOT SEEN) PT 14.5 H (9.7-12.3) SEC INR 1.43 H (0.92-1.18) Sodium 153 H (136-145) mEq/L Potassium 4.5 D (3.5-5.0) mEq/L Chloride 114 H (98-106) mEq/L Carbon Dioxide 34 H (21-32) mmol/L BUN 50 H (7-18) mg/dL Creatinine 1.1 H (0.6-1.0) mg/dL Est Cr Clr Drug Dosing 30.65 mL/min Estimated GFR (MDRD) 47 L (>=60) mL/min Glucose 203 H (75-99) mg/dL Calcium 9.0 (8.4-10.1) mg/dL Vancomycin Trough 11.2 (10-20) ug/mL Med Orders - Current: Current Medications Acetaminophen (Tylenol) 650 mg RECTAL Q4H PRN PRN Reason: Mild pain/fever Last Admin: 08/15/18 16:40 Dose: 650 mg Bisacodyl (Dulcolax) 10 mg RECTAL DAILY PRN PRN Reason: Constipation Last Admin: 08/12/18 15:00 Dose: 10 mg Ceftriaxone Sodium (Rocephin) 1 gm IVPUSH Q24H [facility] Last Admin: 08/15/18 11:59 Dose: 1 gm Sodium Chloride (Normal Saline) 50 mls @ 1 mls/hr IV ASDIRECTED [facility] Potassium Chloride/Sodium Chloride (1/2 Ns With 20 Meq Kcl) 1,000 mls @ 125 mls /hr IV ASDIRECTED [facility] Last Admin: 08/15/18 17:17 Dose: 125 mls/hr Diltiazem HCl 100 mg/ Sodium (Chloride) 100 mls @ 10 mls/hr IV TITRATE [facility]; Protocol Last Titration: 08/15/18 13:54 Dose: 10 mg/hr, 10 mls/hr Lorazepam (Ativan) 1 mg IVPUSH Q6H PRN PRN Reason: Anxiety Last Admin: 08/15/18 05:41 Dose: 1 mg Metoprolol Tartrate (Lopressor) 2.5 mg IVPUSH Q6H [facility] Last Admin: 08/15/18 17:51 Dose: 2.5 mg Morphine Sulfate (Morphine Sulfate) 1 - 2 mg IV Q2H PRN PRN Reason: Pain (severe 7-10) Last Admin: 08/15/18 15:21 Dose: 1 mg Rivastigmine [Exelon (] 4.6 MgOwn Med) 4.6 mg TD DAILY@1999 [facility] Last Admin: 08/14/18 21:30 Dose: 4.6 mg Ondansetron HCl (Zofran) 4 mg IV Q6H PRN PRN Reason: Nausea/Vomiting Pantoprazole Sodium (Protonix Iv) 40 mg IVPUSH 0800 [facility] Last Admin: 08/15/18 07:54 Dose: 40 mg Discontinued Medications Furosemide (Lasix) 40 mg IVPUSH ONETIME ONE Stop: 08/11/18 20:16 Last Admin: 08/11/18 23:09 Dose: 40 mg Furosemide (Lasix) 40 mg IVPUSH ONETIME ONE Stop: 08/12/18 09:41 Last Admin: 08/12/18 12:24 Dose: 40 mg Hydrocortisone (Hydrocortisone 1% Crm) 0 gm TOP QID [facility] Last Admin: 08/12/18 10:59 Dose: Not Given Pantoprazole Sodium 80 mg/ (Sodium Chloride) 100 mls @ 10 mls/hr IV .CONTINUOUS [facility] Last Admin: 08/14/18 07:20 Dose: 10 mls/hr Piperacillin Sod/Tazobactam (Sod 4.5 gm/ Sodium Chloride) 100 mls @ 200 mls/hr IV NOW STA Stop: 08/11/18 20:39 Last Admin: 08/11/18 20:50 Dose: 200 mls/hr Vancomycin HCl 1.5 gm/ Sodium (Chloride) 500 mls @ 250 mls/hr IV Q24H [facility] Stop: 08/11/18 22:59 Last Admin: 08/11/18 21:29 Dose: 250 mls/hr Sodium Chloride (Normal Saline) Confirm Administered Dose 250 mls @ as directed .ROUTE .STK-MED ONE Stop: 08/11/18 20:52 Last Admin: 08/11/18 20:56 Dose: 150 mls/hr Piperacillin Sod/Tazobactam (Sod 4.5 gm/ Sodium Chloride) 100 mls @ 200 mls/hr IV Q6H [facility] Last Admin: 08/11/18 23:29 Dose: Not Given Piperacillin Sod/Tazobactam (Sod 4.5 gm/ Sodium Chloride) 100 mls @ 200 mls/hr IV Q6H [facility] Last Admin: 08/13/18 09:06 Dose: Not Given Sodium Chloride (Normal Saline) 250 mls @ 150 mls/hr IV ASDIRECTED [facility] Sodium Chloride (Normal Saline) Confirm Administered Dose 250 mls @ as directed .ROUTE .STMaxtena-MED ONE Stop: 08/12/18 09:53 Last Admin: 08/12/18 14:48 Dose: 150 mls/hr Sodium Chloride (Normal Saline) Confirm Administered Dose 100 mls @ as directed .ROUTE .STMaxtena-MED ONE Stop: 08/12/18 20:21 Last Admin: 08/12/18 20:29 Dose: 10 mls/hr Piperacillin Sod/Tazobactam (Sod 2.25 gm/ Sodium Chloride) 100 mls @ 200 mls/ hr IV Q8H [facility] Piperacillin Sod/Tazobactam (Sod 2.25 gm/ Sodium Chloride) 100 mls @ 200 mls/ hr IV 0000,0800,1600 [facility] Last Admin: 08/13/18 08:47 Dose: 200 mls/hr Vancomycin HCl 1 gm/Vancomycin HCl 500 mg/ Sodium Chloride 500 mls @ 333.333 mls/hr IV DAILY@1200 [facility] Last Admin: 08/15/18 13:57 Dose: Not Given Metoprolol Tartrate (Lopressor) 2.5 mg IVPUSH Q6H [facility] Last Admin: 08/12/18 01:03 Dose: Not Given Morphine Sulfate (Morphine) 2 mg IVPUSH Q2H PRN PRN Reason: Pain (severe 7-10) Last Admin: 08/13/18 09:52 Dose: 2 mg Morphine Sulfate (Morphine Sulfate) Confirm Administered Dose 4 mg IV .STMaxtena-MED ONE Stop: 08/12/18 18:22 Last Admin: 08/12/18 18:35 Dose: Not Given Morphine Sulfate (Morphine) 2 mg IVPUSH Q2H PRN PRN Reason: Pain Morphine Sulfate (Morphine Sulfate) 2 mg IV Q2H PRN PRN Reason: Pain (severe 7-10) Last Admin: 08/15/18 10:35 Dose: 2 mg Non-Formulary Medication (Rivastigmine [Exelon]) 4.6 mg TD DAILY [facility] Last Admin: 08/12/18 08:02 Dose: Not Given Pantoprazole Sodium (Protonix Iv) 80 mg IVPUSH ONETIME ONE Stop: 08/11/18 20:11 Last Admin: 08/11/18 20:41 Dose: 80 mg Pantoprazole Sodium (Protonix Iv) Confirm Administered Dose 40 mg .ROUTE .STK -MED ONE Stop: 08/12/18 07:45 Last Admin: 08/12/18 08:02 Dose: Not Given Phytonadione (Aquamephyton) 10 mg SUBCUT ONETIME ONE Stop: 08/11/18 20:10 Last Admin: 08/11/18 20:43 Dose: 10 mg Vancomycin HCl (Pharmacy To Dose - Vancomycin) 1 dose .XX DAILY [facility] Last Admin: 08/15/18 19:18 Dose: Not Given Vancomycin HCl (Pharmacy To Dose - Vancomycin) 1 dose .XX ASDIRECTED [facility] - Exam Quality Assessment: Supplemental Oxygen General: Sedated Neck: Supple Lungs: Decreased Breath Sounds Cardiovascular: Irregular Rhythm, Tachycardia GI/Abdominal Exam: Normal Bowel Sounds, Soft, Non-Tender Extremities: Normal Inspection, Pedal Edema Skin: Warm, Dry - Problem List & Annotations (1) Palliative care patient SNOMED Code(s): 083623218 Code(s): Z51.5 - ENCOUNTER FOR PALLIATIVE CARE Status: Acute Priority: High Current Visit: Yes (2) Afib SNOMED Code(s): 83616956 Code(s): I48.91 - UNSPECIFIED ATRIAL FIBRILLATION Status: Acute Priority : High Current Visit: Yes Qualifiers: Atrial fibrillation type: chronic Qualified Code(s): I48.2 - Chronic atrial fibrillation (3) Altered mental status SNOMED Code(s): 870747854 Code(s): R41.82 - ALTERED MENTAL STATUS, UNSPECIFIED Status: Acute Priority: High Current Visit: Yes Qualifiers: Altered mental status type: unspecified Qualified Code(s): R41.82 - Altered mental status, unspecified (4) Anemia SNOMED Code(s): 993820862 Code(s): D64.9 - ANEMIA, UNSPECIFIED Status: Acute Current Visit: No Qualifiers: Anemia type: unspecified type Qualified Code(s): D64.9 - Anemia, unspecified (5) Cellulitis SNOMED Code(s): 127547215 Code(s): L03.90 - CELLULITIS, UNSPECIFIED Status: Acute Priority: High Current Visit: Yes Onset Date: 03/05/14 (6) Renal failure SNOMED Code(s): 84369831 Code(s): N19 - UNSPECIFIED KIDNEY FAILURE Status: Acute Priority: High Current Visit: Yes Qualifiers: Renal failure chronicity: acute Acute renal failure type: unspecified Qualified Code(s): N17.9 - Acute kidney failure, unspecified - Problem List Review Problem List Initiated/Reviewed/Updated: Yes - My Orders Last 24 Hours: My Active Orders 08/15/18 09:15 Diltiazem [Cardizem] 100 mg Sodium Chloride 0.9% [Normal Saline] 100 ml IV TITRATE - Assessment Assessment:: Anemia Cellulitis Renal Failure Sepsis Palliative care patient - Plan Plan:: This patient was admitted from the ER with complex multiple concerns. She is an ICU patient needing ICU care, but at this time patient family POA with shared managed patient decision does not want the patient transferred. They understand that may result is is probable. The patient has GI bleeding, anemia, coumadin toxicity, renal failure, unresponsive, rapid a-fib, increases blood sugars, sepsis and BLE cellulitis. I was informed today as well the patient blood cultures are growing bacteria. The patient labs are as follows 08/01/181958 hgb 5.6, INR 6.79. Patient was given 2 units of RBCs at 2100 and 2315 on 07/18. Given 2 buttons of FFP yesterday 08/11/18 at 2030 and 2130. Labs were than repeated 08/12/18 at 0359 hgb 8.0, INR 3.11. Given FFP today at 0245. Labs today at 0759 were hgb 7.1, INR 2.77. RBC 1 unit infused at 10am today and 1pm today. Labs today hgb at 1559 was 10.4, INR is 2.33. 1 FFP given at 4:45pm. So far, there have been a total during patient stay RBCs 4 given and FFP 4 given. I will recheck the patient H &H and INR again tonight around 8pm to ensure to continued drop in hgb and ensure INR is no longer toxic level. The patient will continue vancomycin and Zosyn at the dosing direction of pharmacy. Patients CR level remains elevated at 1.9 today, even after doses of Lasix to remove fluid. Patients BNP has increased to above 1500. The patient will continue her protonix gtt until PCP/scope can see the patient tomorrow and discuss with family the best plan of care. The patient has been resting comfortable. This morning she had some restlessness and moaning. The family felt she may have been uncomfortable, so Morphine has been given every 2 hours for comfort for pain. The patient does moan in pain when her legs are touched. During examination today, the patient also moans and grimace in pain when palpation of the abdomen diffusely. I ordered a no contrast ct that was unremarkable. However , the study was limited due to renal function and no IV contrast. Discussed results with the family and limitations. I have gone into the patient room 5 times today and each time have given patient updates, lab updates, and the next step of care. I have each time explained to them that she is very ill and may . I explained to the them that she may begin to become fluid overloaded and now will start to become a clotting risk once I continue to drop her INR. I also discussed that removing fluid off the body due to fluid overload from blood and her renal function, may cause damage to her kidneys. I explained that while some things may improve like her hgb, that other things may worsen and arise. Each time I have explained that she needs a higher level of care and more resources than we can offer in [place]. However, the family and POA would like to keep her here in [place], keep her comfortable, but would like to continue treatment. While also remaining DNR. A CXR today was also done to lool for pulmonary edema. The CXR shows no edema even with climbing BNP and BLE edema. I have spent many hours of critical care time with this patient since her arrival. A this time, the patient is currently getting her 4th FFP. Another H&H/INR will be drawn at 8pm. At that time, the nurse will call me with results and we will at that time decide what further products are needed, if any. Will continue with the patient Critical admit. She remains in Critical condition. The PCP will see her tomorrow and evaluate and discuss options with the family. The patient is palliative admit and has a probable chance of during this admit. 08-13-2018 Palliative care patient admitted from [facility] with multiple concerns of cellulitis, renal failure, coumadin toxicity, anemia, heart failure and sepsis. Had noted anemia with hemoglobin at 5.1, has been given 4 units of PRBC and due to supratherapeutic INR, 4 units of fresh frozen plasma. Patient remains unresponsive, does grimace at times with palpation of her lower extremities. Has been NPO since admit. ProBNP elevated on admission and thereafter, was given IV Lasix. Has had good urine output. Creatinine was elevated on admit at 1.9. Is currently on IV Vancomycin and Zosyn. IV Protonix drip. No change in status since admission. Family has been at bedtime. Family aware of circumstances surrounding sepsis, renal failure, anemia, heart failure and limited response to measures done yet at this point. Labs today do note slight improvement at 12.5. Hemoglobin stable at 10.5. INR today 1.61. CRP 19 today. Blood cultures today showed group B strep. Wound cultures show staph aureus. Temp 100.3, low grade fevers at times. Bilateral lower extremities do have redness and open wounds, right worse than left. Serous drainage noted on bandages. Again discussed need for treatment versus transfer with family. They do want to keep status as DNR, treat here and see how patient progresses/declines. They are well aware of poor prognosis at this point. Due to culture report, will switch patient from Zosyn to Rocephin and continue VAncomycin. Oxygen. Monitor urine output. Repeat labs in am. 08-14-2018 Patient does open eyes this am with stimulation. No vocal response. Family relates that she did say "okay and bye" yesterday. Color improved this am. Does continue to have urine output but quite concentrated. Lung sounds diminished but clear. Heart rhythm irregular, rate 120s. Low grade temps noted yet. WBC stable this am at 8.9, platelets down to 31. creatinine 1.3. Potassium low at 2.9. Will continue Vancomycin and Rocephin. Start 1/2 NS with 20 meq KCL at 125 ml/ hr. Repeat labs in am. Inappropriate for discharge. 08-15-2018 Patient sedated this am, was given Morphine prior to my presentation today due to restlessness. Was more alert last evening per family. Continues to have low grade fevers. Heart rate 140, atrial fib still noted. Oxygen sats 90% on 3 liters, increased to 3.5 liters. Sats improved to 93%. Awaiting lab work yet this am as is being drawn at 1100 due to vancomycin trough at that time. RLE does remain red, edematous. Minimal improvement. Family present at bedside , aware of minimal change in status. Will continue with IV Vanco and Rocephin. IV fluids. Morphine for comfort. Cardizem drip started due to ongoing rapid heart rate. Await lab results.
[2018-08-15] MEDS: Levalbuterol HCl 1.25 MG/3 ML Neb NEB PRN (21:59)
[2018-08-16] MEDS: Sodium Chloride 0.45% with KCl 1,000 ML IV SCH (04:18)
[2018-08-16] MEDS: Pantoprazole 40 MG Vial IVPUSH SCH (08:10)
[2018-08-16 08:50] VITALS: BP 147/69
[2018-08-16] MEDS ORDERED: Clindamycin Phosphate in D5W 300 MG in Premix Bag 1 BAG IV SCH ×2 (10:00)
[2018-08-16] MEDS: Levalbuterol HCl 1.25 MG/3 ML Neb NEB PRN ×2 (15:54→20:29)
--- NOTE | 2018-08-16 21:18 | PCM.PN ---
- General Info Date of Service: 08/16/18 Admission Dx/Problem (Free Text): Anemia Renal Failure Sepsis Bilateral lower extremity cellulitis Functional Status: Reports: Pain Controlled. Denies: Tolerating Diet, Ambulating - Review of Systems General: Reports: Weakness, Other (ROS unobtainable) - Patient Data Vitals - Most Recent: Last Vital Signs Temp 96.2 F 08/16/18 08:00 Pulse 118 H 08/16/18 08:00 Resp 16 08/16/18 08:00 BP 147/69 H 08/16/18 08:00 Pulse Ox 94 L 08/16/18 08:00 Weight - Most Recent: 208 lb 4.8 oz I&O - Last 24 Hours: Intake & Output 08/16/18 08/16/18 08/16/18 06:59 14:59 22:59 Intake Total 1063 Output Total 450 800 Balance 613 -800 Lab Results Last 24 Hours: Laboratory Results - last 24 hr 08/16/18 08/16/18 Range/Units 09:00 09:00 WBC 4.0 L (5.0-10.0) 10^3/uL Corrected WBC 2.8 L (5.0-10.0) 10^3/uL RBC 3.72 L (4.00-5.50) 10^6/uL Hgb 10.4 L (12.0-16.0) g/dL Hct 35.0 L (37.0-47.0) % MCV 94.1 H (82.0-94.0) fL MCH 28.0 (27.0-32.0) pg MCHC 29.7 L (33.0-38.0) g/dL RDW Coeff of Kendall 24.2 H (11.0-15.0) % Plt Count 9 L* (150-400) 10^3/uL Add Manual Diff Yes Neutrophils % (Manual) 62 (35-85) % Band Neutrophils % 4 (0-5) % Lymphocytes % (Manual) 20 L (21-55) % Monocytes % (Manual) 8 (2-12) % Eosinophils % (Manual) 6 H (0-5) % Absolute Neutrophils 2.64 (1.80-7.00) 10^3/uL Lymphocytes # (Manual) 0.80 L (1.00-4.80) 10^3/uL Monocytes # (Manual) 0.32 (0.00-0.80) 10^3/uL Eosinophils # (Manual) 0.24 (0.00-0.45) 10^3/uL Nucleated RBCs 41 H (0-5) /100WBC Platelet Estimate Marked dec L (ADEQUATE) Poikilocytosis 2+ moderate H (NOT SEEN) Anisocytosis 2+ moderate H (NOT SEEN) Sodium 155 H (136-145) mEq/L Potassium 4.4 (3.5-5.0) mEq/L Chloride 116 H (98-106) mEq/L Carbon Dioxide 34 H (21-32) mmol/L BUN 56 H (7-18) mg/dL Creatinine 1.2 H (0.6-1.0) mg/dL Est Cr Clr Drug Dosing 28.09 mL/min Estimated GFR (MDRD) 43 L (>=60) mL/min Glucose 209 H (75-99) mg/dL Calcium 8.9 (8.4-10.1) mg/dL Total Bilirubin 8.1 H (0.0-1.0) mg/dL AST 68 H (15-37) U/L ALT 31 (12-78) U/L Alkaline Phosphatase 54 (46-116) U/L C-Reactive Protein 22.5 H (0.2-0.8) mg/dL NT-Pro-B Natriuret Pep 5914 H (0-1000) pg/mL Total Protein 6.3 L (6.4-8.2) g/dL Albumin 1.8 L (3.4-5.0) g/dL Med Orders - Current: Current Medications Acetaminophen (Tylenol) 650 mg RECTAL Q4H PRN PRN Reason: Mild pain/fever Last Admin: 08/15/18 16:40 Dose: 650 mg Levalbuterol HCl (Xopenex) 1.25 mg NEB Q4H PRN PRN Reason: Shortness of Breath Last Admin: 08/16/18 20:29 Dose: 1.25 mg Lorazepam (Ativan) 1 mg IVPUSH Q6H PRN PRN Reason: Anxiety Last Admin: 08/15/18 05:41 Dose: 1 mg Morphine Sulfate (Morphine Sulfate) 1 - 2 mg IV Q2H PRN PRN Reason: Pain (severe 7-10) Last Admin: 08/16/18 20:28 Dose: 2 mg Ondansetron HCl (Zofran) 4 mg IV Q6H PRN PRN Reason: Nausea/Vomiting Discontinued Medications Bisacodyl (Dulcolax) 10 mg RECTAL DAILY PRN PRN Reason: Constipation Last Admin: 08/12/18 15:00 Dose: 10 mg Ceftriaxone Sodium (Rocephin) 1 gm IVPUSH Q24H [facility] Last Admin: 08/15/18 11:59 Dose: 1 gm Furosemide (Lasix) 40 mg IVPUSH ONETIME ONE Stop: 08/11/18 20:16 Last Admin: 08/11/18 23:09 Dose: 40 mg Furosemide (Lasix) 40 mg IVPUSH ONETIME ONE Stop: 08/12/18 09:41 Last Admin: 08/12/18 12:24 Dose: 40 mg Hydrocortisone (Hydrocortisone 1% Crm) 0 gm TOP QID [facility] Last Admin: 08/12/18 10:59 Dose: Not Given Pantoprazole Sodium 80 mg/ (Sodium Chloride) 100 mls @ 10 mls/hr IV .CONTINUOUS [facility] Last Admin: 08/14/18 07:20 Dose: 10 mls/hr Piperacillin Sod/Tazobactam (Sod 4.5 gm/ Sodium Chloride) 100 mls @ 200 mls/hr IV NOW STA Stop: 08/11/18 20:39 Last Admin: 08/11/18 20:50 Dose: 200 mls/hr Vancomycin HCl 1.5 gm/ Sodium (Chloride) 500 mls @ 250 mls/hr IV Q24H [facility] Stop: 08/11/18 22:59 Last Admin: 08/11/18 21:29 Dose: 250 mls/hr Sodium Chloride (Normal Saline) Confirm Administered Dose 250 mls @ as directed .ROUTE .STK-MED ONE Stop: 08/11/18 20:52 Last Admin: 08/11/18 20:56 Dose: 150 mls/hr Piperacillin Sod/Tazobactam (Sod 4.5 gm/ Sodium Chloride) 100 mls @ 200 mls/hr IV Q6H [facility] Last Admin: 08/11/18 23:29 Dose: Not Given Piperacillin Sod/Tazobactam (Sod 4.5 gm/ Sodium Chloride) 100 mls @ 200 mls/hr IV Q6H [facility] Last Admin: 08/13/18 09:06 Dose: Not Given Sodium Chloride (Normal Saline) 250 mls @ 150 mls/hr IV ASDIRECTED [facility] Sodium Chloride (Normal Saline) Confirm Administered Dose 250 mls @ as directed .ROUTE .[facility] ONE Stop: 08/12/18 09:53 Last Admin: 08/12/18 14:48 Dose: 150 mls/hr Sodium Chloride (Normal Saline) 50 mls @ 1 mls/hr IV ASDIRECTED [facility] Sodium Chloride (Normal Saline) Confirm Administered Dose 100 mls @ as directed .ROUTE .[facility] ONE Stop: 08/12/18 20:21 Last Admin: 08/12/18 20:29 Dose: 10 mls/hr Piperacillin Sod/Tazobactam (Sod 2.25 gm/ Sodium Chloride) 100 mls @ 200 mls/ hr IV Q8H [facility] Piperacillin Sod/Tazobactam (Sod 2.25 gm/ Sodium Chloride) 100 mls @ 200 mls/ hr IV 0000,0800,1600 [facility] Last Admin: 08/13/18 08:47 Dose: 200 mls/hr Vancomycin HCl 1 gm/Vancomycin HCl 500 mg/ Sodium Chloride 500 mls @ 333.333 mls/hr IV DAILY@1200 [facility] Last Admin: 08/15/18 13:57 Dose: Not Given Potassium Chloride/Sodium Chloride (1/2 Ns With 20 Meq Kcl) 1,000 mls @ 125 mls /hr IV ASDIRECTED [facility] Last Admin: 08/16/18 04:18 Dose: 125 mls/hr Diltiazem HCl 100 mg/ Sodium (Chloride) 100 mls @ 10 mls/hr IV TITRATE [facility]; Protocol Last Titration: 08/16/18 06:01 Dose: 10 mg/hr, 10 mls/hr Clindamycin Phosphate 300 mg/ (Premix) 50 mls @ 100 mls/hr IV Q6H [facility] Last Admin: 08/16/18 11:19 Dose: Not Given Metoprolol Tartrate (Lopressor) 2.5 mg IVPUSH Q6H [facility] Last Admin: 08/12/18 01:03 Dose: Not Given Metoprolol Tartrate (Lopressor) 2.5 mg IVPUSH Q6H [facility] Last Admin: 08/15/18 17:51 Dose: 2.5 mg Morphine Sulfate (Morphine) 2 mg IVPUSH Q2H PRN PRN Reason: Pain (severe 7-10) Last Admin: 08/13/18 09:52 Dose: 2 mg Morphine Sulfate (Morphine Sulfate) Confirm Administered Dose 4 mg IV .STK-MED ONE Stop: 08/12/18 18:22 Last Admin: 08/12/18 18:35 Dose: Not Given Morphine Sulfate (Morphine) 2 mg IVPUSH Q2H PRN PRN Reason: Pain Morphine Sulfate (Morphine Sulfate) 2 mg IV Q2H PRN PRN Reason: Pain (severe 7-10) Last Admin: 08/15/18 10:35 Dose: 2 mg Non-Formulary Medication (Rivastigmine [Exelon]) 4.6 mg TD DAILY [facility] Last Admin: 08/12/18 08:02 Dose: Not Given Rivastigmine [Exelon (] 4.6 MgOwn Med) 4.6 mg TD DAILY@1999 [facility] Last Admin: 08/14/18 21:30 Dose: 4.6 mg Pantoprazole Sodium (Protonix Iv) 80 mg IVPUSH ONETIME ONE Stop: 08/11/18 20:11 Last Admin: 08/11/18 20:41 Dose: 80 mg Pantoprazole Sodium (Protonix Iv) Confirm Administered Dose 40 mg .ROUTE .STK -MED ONE Stop: 08/12/18 07:45 Last Admin: 08/12/18 08:02 Dose: Not Given Pantoprazole Sodium (Protonix Iv) 40 mg IVPUSH 0800 [facility] Last Admin: 08/16/18 08:10 Dose: 40 mg Phytonadione (Aquamephyton) 10 mg SUBCUT ONETIME ONE Stop: 08/11/18 20:10 Last Admin: 08/11/18 20:43 Dose: 10 mg Vancomycin HCl (Pharmacy To Dose - Vancomycin) 1 dose .XX DAILY [facility] Last Admin: 08/15/18 19:18 Dose: Not Given Vancomycin HCl (Pharmacy To Dose - Vancomycin) 1 dose .XX ASDIRECTED [facility] - Exam Quality Assessment: Supplemental Oxygen General: Lethargic Lungs: Decreased Breath Sounds, Rhonchi Cardiovascular: Irregular Rhythm, Tachycardia GI/Abdominal Exam: Normal Bowel Sounds, Soft, Non-Tender Extremities: Pedal Edema (generalized edema throughout) Skin: Other (scattered petechaie noted throughout arms. RLE remains red to groin, more violaceous at this point, warm to the touch. Bandages intact to lower extremities.) - Problem List & Annotations (1) Afib SNOMED Code(s): 76794068 Code(s): I48.91 - UNSPECIFIED ATRIAL FIBRILLATION Status: Acute Priority : High Current Visit: Yes Qualifiers: Atrial fibrillation type: chronic Qualified Code(s): I48.2 - Chronic atrial fibrillation (2) Altered mental status SNOMED Code(s): 476480089 Code(s): R41.82 - ALTERED MENTAL STATUS, UNSPECIFIED Status: Acute Priority: High Current Visit: Yes Qualifiers: Altered mental status type: unspecified Qualified Code(s): R41.82 - Altered mental status, unspecified (3) Anemia SNOMED Code(s): 797171736 Code(s): D64.9 - ANEMIA, UNSPECIFIED Status: Acute Current Visit: No Qualifiers: Anemia type: unspecified type Qualified Code(s): D64.9 - Anemia, unspecified (4) Cellulitis SNOMED Code(s): 544320027 Code(s): L03.90 - CELLULITIS, UNSPECIFIED Status: Acute Priority: High Current Visit: Yes Onset Date: 03/05/14 (5) Renal failure SNOMED Code(s): 03550755 Code(s): N19 - UNSPECIFIED KIDNEY FAILURE Status: Acute Priority: High Current Visit: Yes Qualifiers: Renal failure chronicity: acute Acute renal failure type: unspecified Qualified Code(s): N17.9 - Acute kidney failure, unspecified (6) Need for comfort care SNOMED Code(s): 516089238, 948592811 Code(s): CJX7976 - Status: Acute Priority: High Current Visit: Yes - Problem List Review Problem List Initiated/Reviewed/Updated: Yes - My Orders Last 24 Hours: My Active Orders 08/15/18 21:45 Levalbuterol HCl [Xopenex] 1.25 mg NEB Q4H PRN 08/15/18 21:46 RT Aerosol Therapy [RC] ASDIRECTED 08/16/18 11:15 Comfort Measures [OM.PC] Routine - Assessment Assessment:: Anemia Cellulitis Renal Failure Sepsis Palliative care patient - Plan Plan:: This patient was admitted from the ER with complex multiple concerns. She is an ICU patient needing ICU care, but at this time patient family POA with shared managed patient decision does not want the patient transferred. They understand that may result is is probable. The patient has GI bleeding, anemia, coumadin toxicity, renal failure, unresponsive, rapid a-fib, increases blood sugars, sepsis and BLE cellulitis. I was informed today as well the patient blood cultures are growing bacteria. The patient labs are as follows 08/01/181958 hgb 5.6, INR 6.79. Patient was given 2 units of RBCs at 2100 and 2315 on 07/18. Given 2 buttons of FFP yesterday 08/11/18 at 2030 and 2130. Labs were than repeated 08/12/18 at 0359 hgb 8.0, INR 3.11. Given FFP today at 0245. Labs today at 0759 were hgb 7.1, INR 2.77. RBC 1 unit infused at 10am today and 1pm today. Labs today hgb at 1559 was 10.4, INR is 2.33. 1 FFP given at 4:45pm. So far, there have been a total during patient stay RBCs 4 given and FFP 4 given. I will recheck the patient H &H and INR again tonight around 8pm to ensure to continued drop in hgb and ensure INR is no longer toxic level. The patient will continue vancomycin and Zosyn at the dosing direction of pharmacy. Patients CR level remains elevated at 1.9 today, even after doses of Lasix to remove fluid. Patients BNP has increased to above 1500. The patient will continue her protonix gtt until PCP/scope can see the patient tomorrow and discuss with family the best plan of care. The patient has been resting comfortable. This morning she had some restlessness and moaning. The family felt she may have been uncomfortable, so Morphine has been given every 2 hours for comfort for pain. The patient does moan in pain when her legs are touched. During examination today, the patient also moans and grimace in pain when palpation of the abdomen diffusely. I ordered a no contrast ct that was unremarkable. However , the study was limited due to renal function and no IV contrast. Discussed results with the family and limitations. I have gone into the patient room 5 times today and each time have given patient updates, lab updates, and the next step of care. I have each time explained to them that she is very ill and may . I explained to the them that she may begin to become fluid overloaded and now will start to become a clotting risk once I continue to drop her INR. I also discussed that removing fluid off the body due to fluid overload from blood and her renal function, may cause damage to her kidneys. I explained that while some things may improve like her hgb, that other things may worsen and arise. Each time I have explained that she needs a higher level of care and more resources than we can offer in [place]. However, the family and POA would like to keep her here in [place], keep her comfortable, but would like to continue treatment. While also remaining DNR. A CXR today was also done to lool for pulmonary edema. The CXR shows no edema even with climbing BNP and BLE edema. I have spent many hours of critical care time with this patient since her arrival. A this time, the patient is currently getting her 4th FFP. Another H&H/INR will be drawn at 8pm. At that time, the nurse will call me with results and we will at that time decide what further products are needed, if any. Will continue with the patient Critical admit. She remains in Critical condition. The PCP will see her tomorrow and evaluate and discuss options with the family. The patient is palliative admit and has a probable chance of during this admit. 08-13-2018 Palliative care patient admitted from [facility] with multiple concerns of cellulitis, renal failure, coumadin toxicity, anemia, heart failure and sepsis. Had noted anemia with hemoglobin at 5.1, has been given 4 units of PRBC and due to supratherapeutic INR, 4 units of fresh frozen plasma. Patient remains unresponsive, does grimace at times with palpation of her lower extremities. Has been NPO since admit. ProBNP elevated on admission and thereafter, was given IV Lasix. Has had good urine output. Creatinine was elevated on admit at 1.9. Is currently on IV Vancomycin and Zosyn. IV Protonix drip. No change in status since admission. Family has been at bedtime. Family aware of circumstances surrounding sepsis, renal failure, anemia, heart failure and limited response to measures done yet at this point. Labs today do note slight improvement at 12.5. Hemoglobin stable at 10.5. INR today 1.61. CRP 19 today. Blood cultures today showed group B strep. Wound cultures show staph aureus. Temp 100.3, low grade fevers at times. Bilateral lower extremities do have redness and open wounds, right worse than left. Serous drainage noted on bandages. Again discussed need for treatment versus transfer with family. They do want to keep status as DNR, treat here and see how patient progresses/declines. They are well aware of poor prognosis at this point. Due to culture report, will switch patient from Zosyn to Rocephin and continue VAncomycin. Oxygen. Monitor urine output. Repeat labs in am. 08-14-2018 Patient does open eyes this am with stimulation. No vocal response. Family relates that she did say "okay and bye" yesterday. Color improved this am. Does continue to have urine output but quite concentrated. Lung sounds diminished but clear. Heart rhythm irregular, rate 120s. Low grade temps noted yet. WBC stable this am at 8.9, platelets down to 31. creatinine 1.3. Potassium low at 2.9. Will continue Vancomycin and Rocephin. Start 1/2 NS with 20 meq KCL at 125 ml/ hr. Repeat labs in am. Inappropriate for discharge. 08-15-2018 Patient sedated this am, was given Morphine prior to my presentation today due to restlessness. Was more alert last evening per family. Continues to have low grade fevers. Heart rate 140, atrial fib still noted. Oxygen sats 90% on 3 liters, increased to 3.5 liters. Sats improved to 93%. Awaiting lab work yet this am as is being drawn at 1100 due to vancomycin trough at that time. RLE does remain red, edematous. Minimal improvement. Family present at bedside , aware of minimal change in status. Will continue with IV Vanco and Rocephin. IV fluids. Morphine for comfort. Cardizem drip started due to ongoing rapid heart rate. Await lab results. 08-16-2018 Patient lethargic. Does open eyes at times, no verbal response. Respirations more labored. Does have scattered rhonchi. Generalized edema throughout. Has scattered petechiae on her arms now. Sats 92% on 3 1/2 liters of oxygen. Blood pressures stable yet. Atrial fib with RVR at times. We had stopped morphine yesterday hoping for patient to be more alert per family request but overall status has not changed all that much, continues to decline. Labs continue to decline. WBC down to 4, hemoglobin 10, platelets at 9. Sodium up to 155. Liver enzymes elevated. Much discussion held with all 3 children today about minimal response to interventions up to this point. Family well aware. Offered more aggressive treatment, ie. heparin, platelet transfusions but family opts to switch to comfort cares only. Will continue with morphine as needed. NEbs as needed and oxygen. Await events.
--- NOTE | 2018-08-19 20:53 | PCM.DCSUM1 ---
Discharge Summary - Hospital Course Free Text/Narrative:: Gavi presented to the ER via EMS from [facility] with increased lethargy, less responsive over the week prior to admission. She has been battling wound infections in her legs now for the last week or so. Patient has had a fever off an on. Not eating well. Labs done in the ER showed low hemoglobin of 5.6, platelets 50. INR supratherapeutic at 6.79. Creatinine 2.0. BNP 9946. Admitted for sepsis, anemia, cellulitis of bilateral legs. PRBCs ordered as well as Fresh frozen plasma. Diagnosis: Stroke: No Modified [place] Scale: No Symptoms at All Modified [place] Scale Score: 0 - Discharge Data Discharge Date: 08/17/18 Discharge Disposition: DC/Tfer W/I Hosp To Swing 61 Condition: Good - Discharge Diagnosis/Problem(s) (1) Afib SNOMED Code(s): 96361133 ICD Code: I48.91 - UNSPECIFIED ATRIAL FIBRILLATION Status: Acute Priority : High Qualifiers: Atrial fibrillation type: chronic Qualified Code(s): I48.2 - Chronic atrial fibrillation (2) Altered mental status SNOMED Code(s): 673831143 ICD Code: R41.82 - ALTERED MENTAL STATUS, UNSPECIFIED Status: Acute Priority: High Qualifiers: Altered mental status type: unspecified Qualified Code(s): R41.82 - Altered mental status, unspecified (3) Anemia SNOMED Code(s): 352624086 ICD Code: D64.9 - ANEMIA, UNSPECIFIED Status: Acute Qualifiers: Anemia type: unspecified type Qualified Code(s): D64.9 - Anemia, unspecified (4) Cellulitis SNOMED Code(s): 991575510 ICD Code: L03.90 - CELLULITIS, UNSPECIFIED Status: Acute Priority: High Onset Date: 03/05/14 (5) Renal failure SNOMED Code(s): 39904231 ICD Code: N19 - UNSPECIFIED KIDNEY FAILURE Status: Acute Priority: High Qualifiers: Renal failure chronicity: acute Acute renal failure type: unspecified Qualified Code(s): N17.9 - Acute kidney failure, unspecified (6) Need for comfort care SNOMED Code(s): 789859665, 816044734 ICD Code: [id number] - Status: Acute Priority: High - Patient Summary/Data Complications: none Hospital Course: Patient has continued to decline despite multiple measures during hospital inpatient stay. On day of admission, patient was given 4 units of PRBCs and 4 units of fresh frozen plasma. INR did improve, hemoglobin did improve overall to 11. She did have concerns with fluid overload and was given Lasix 40 mg IV. She was started on Zosyn and Vancomycin. Wound culture and blood cultures were obtained. Family aware of status and declined transfer and requested to treat in [place]. Patient ABDULLAHI was noted to have bilateral open wounds, see pictures and redness to the knee. Increased warmth noted. Over the 5 days of inpatient stay, redness has actually increased to the groin despite switching antibiotics to cover strep B and staph aureus on blood cultures and wound cultures. Patient had not had any oral intake after 2 days so IV fluids were started and patient again had issues with fluid overload. Creatinine had improved to 1.3. Platelets continued to drop to very low at 9, petechiae noted throughout. Lung sounds have become more congested, wheezing, increased work of breathing noted. Concerns with DIC noted. Multiple conversations held with family daily on overall status. Did opt for comfort cares yesterday, will transfer to swing bed today with expected. All antibiotics held now. Will continue to provide Ativan and Fentanyl as needed for comfort. - Discharge Plan *PRESCRIPTION DRUG MONITORING PROGRAM REVIEWED*: Not Applicable *COPY OF PRESCRIPTION DRUG MONITORING REPORT IN PATIENT SIDNEY: Not Applicable Home Medications: Home Meds Enalapril/Hydrochlorothiazide [Vaseretic 10-25 MG] 1 tab PO DAILY 10/14/13 [ History] Metoprolol Tartrate [Lopressor] 50 mg PO BID 10/14/13 [History] Warfarin Sliding Scale [Coumadin Sliding Scale] 5 mg PO DAILY 10/14/13 [History] Acetaminophen [Tylenol Extra Strength] 1,000 mg PO TID 08/11/18 [History] Hydrocortisone [Cortef] 10 mg PO DAILY 08/11/18 [History] Hydrocortisone [Preparation H] 26 gm TP QID 08/11/18 [History] Magnesium Oxide 500 mg PO DAILY 08/11/18 [History] Memantine HCl [Namenda Xr] 28 mg PO DAILY 08/11/18 [History] Potassium Chloride [K-Tab ER] 20 meq PO DAILY 08/11/18 [History] Rivastigmine [Exelon] 4.6 mg TD DAILY 08/11/18 [History] Sertraline HCl [Zoloft] 50 mg PO DAILY 08/11/18 [History] Warfarin [Coumadin] 2.5 mg PO DAILY 08/11/18 [History] Forms: ED Department Discharge Referrals: Herman Wu MD [Primary Care Provider] - - Discharge Summary/Plan Comment DC Time >30 min.: No - General Info Date of Service: 08/17/18 Admission Dx/Problem (Free Text: Anemia Renal Failure Sepsis Bilateral lower extremity cellulitis Functional Status: Reports: Other (patient unresponsive, unable to obtain ROS) - Patient Data Vitals - Most Recent: Last Vital Signs Temp 97.4 F 08/16/18 23:58 Pulse 118 H 08/16/18 08:00 Resp 16 08/16/18 08:00 BP 147/69 H 08/16/18 08:00 Pulse Ox 91 L 08/16/18 23:58 Weight - Most Recent: 208 lb 4.8 oz Med Orders - Current: Current Medications Discontinued Medications Acetaminophen (Tylenol) 650 mg RECTAL Q4H PRN PRN Reason: Mild pain/fever Last Admin: 08/15/18 16:40 Dose: 650 mg Bisacodyl (Dulcolax) 10 mg RECTAL DAILY PRN PRN Reason: Constipation Last Admin: 08/12/18 15:00 Dose: 10 mg Ceftriaxone Sodium (Rocephin) 1 gm IVPUSH Q24H SCOOTER Last Admin: 08/15/18 11:59 Dose: 1 gm Furosemide (Lasix) 40 mg IVPUSH ONETIME ONE Stop: 08/11/18 20:16 Last Admin: 08/11/18 23:09 Dose: 40 mg Furosemide (Lasix) 40 mg IVPUSH ONETIME ONE Stop: 08/12/18 09:41 Last Admin: 08/12/18 12:24 Dose: 40 mg Hydrocortisone (Hydrocortisone 1% Crm) 0 gm TOP QID SCOOTER Last Admin: 08/12/18 10:59 Dose: Not Given Pantoprazole Sodium 80 mg/ (Sodium Chloride) 100 mls @ 10 mls/hr IV .CONTINUOUS SCOOTER Last Admin: 08/14/18 07:20 Dose: 10 mls/hr Piperacillin Sod/Tazobactam (Sod 4.5 gm/ Sodium Chloride) 100 mls @ 200 mls/hr IV NOW STA Stop: 08/11/18 20:39 Last Admin: 08/11/18 20:50 Dose: 200 mls/hr Vancomycin HCl 1.5 gm/ Sodium (Chloride) 500 mls @ 250 mls/hr IV Q24H SCOOTER Stop: 08/11/18 22:59 Last Admin: 08/11/18 21:29 Dose: 250 mls/hr Sodium Chloride (Normal Saline) Confirm Administered Dose 250 mls @ as directed .ROUTE .ST-MED ONE Stop: 08/11/18 20:52 Last Admin: 08/11/18 20:56 Dose: 150 mls/hr Piperacillin Sod/Tazobactam (Sod 4.5 gm/ Sodium Chloride) 100 mls @ 200 mls/hr IV Q6H [facility] Last Admin: 08/11/18 23:29 Dose: Not Given Piperacillin Sod/Tazobactam (Sod 4.5 gm/ Sodium Chloride) 100 mls @ 200 mls/hr IV Q6H [facility] Last Admin: 08/13/18 09:06 Dose: Not Given Sodium Chloride (Normal Saline) 250 mls @ 150 mls/hr IV ASDIRECTED SCOOTER Sodium Chloride (Normal Saline) Confirm Administered Dose 250 mls @ as directed .ROUTE .[facility] ONE Stop: 08/12/18 09:53 Last Admin: 08/12/18 14:48 Dose: 150 mls/hr Sodium Chloride (Normal Saline) 50 mls @ 1 mls/hr IV ASDIRECTED [facility] Sodium Chloride (Normal Saline) Confirm Administered Dose 100 mls @ as directed .ROUTE .[facility] ONE Stop: 08/12/18 20:21 Last Admin: 08/12/18 20:29 Dose: 10 mls/hr Piperacillin Sod/Tazobactam (Sod 2.25 gm/ Sodium Chloride) 100 mls @ 200 mls/ hr IV Q8H SCOOTER Piperacillin Sod/Tazobactam (Sod 2.25 gm/ Sodium Chloride) 100 mls @ 200 mls/ hr IV 0000,0800,1600 [facility] Last Admin: 08/13/18 08:47 Dose: 200 mls/hr Vancomycin HCl 1 gm/Vancomycin HCl 500 mg/ Sodium Chloride 500 mls @ 333.333 mls/hr IV DAILY@1200 [facility] Last Admin: 08/15/18 13:57 Dose: Not Given Potassium Chloride/Sodium Chloride (1/2 Ns With 20 Meq Kcl) 1,000 mls @ 125 mls /hr IV ASDIRECTED SCOOTER Last Admin: 08/16/18 04:18 Dose: 125 mls/hr Diltiazem HCl 100 mg/ Sodium (Chloride) 100 mls @ 10 mls/hr IV TITRATE SCOOTER; Protocol Last Titration: 08/16/18 06:01 Dose: 10 mg/hr, 10 mls/hr Clindamycin Phosphate 300 mg/ (Premix) 50 mls @ 100 mls/hr IV Q6H SCOOTER Last Admin: 08/16/18 11:19 Dose: Not Given Levalbuterol HCl (Xopenex) 1.25 mg NEB Q4H PRN PRN Reason: Shortness of Breath Last Admin: 08/16/18 20:29 Dose: 1.25 mg Lorazepam (Ativan) 1 mg IVPUSH Q6H PRN PRN Reason: Anxiety Last Admin: 08/15/18 05:41 Dose: 1 mg Metoprolol Tartrate (Lopressor) 2.5 mg IVPUSH Q6H SCOOTER Last Admin: 08/12/18 01:03 Dose: Not Given Metoprolol Tartrate (Lopressor) 2.5 mg IVPUSH Q6H SCOOTER Last Admin: 08/15/18 17:51 Dose: 2.5 mg Morphine Sulfate (Morphine) 2 mg IVPUSH Q2H PRN PRN Reason: Pain (severe 7-10) Last Admin: 08/13/18 09:52 Dose: 2 mg Morphine Sulfate (Morphine Sulfate) Confirm Administered Dose 4 mg IV .ST-MED ONE Stop: 08/12/18 18:22 Last Admin: 08/12/18 18:35 Dose: Not Given Morphine Sulfate (Morphine) 2 mg IVPUSH Q2H PRN PRN Reason: Pain Morphine Sulfate (Morphine Sulfate) 2 mg IV Q2H PRN PRN Reason: Pain (severe 7-10) Last Admin: 08/15/18 10:35 Dose: 2 mg Morphine Sulfate (Morphine Sulfate) 1 - 2 mg IV Q2H PRN PRN Reason: Pain (severe 7-10) Last Admin: 08/16/18 20:28 Dose: 2 mg Non-Formulary Medication (Rivastigmine [Exelon]) 4.6 mg TD DAILY [facility] Last Admin: 08/12/18 08:02 Dose: Not Given Rivastigmine [Exelon (] 4.6 MgOwn Med) 4.6 mg TD DAILY@1999 [facility] Last Admin: 08/14/18 21:30 Dose: 4.6 mg Ondansetron HCl (Zofran) 4 mg IV Q6H PRN PRN Reason: Nausea/Vomiting Pantoprazole Sodium (Protonix Iv) 80 mg IVPUSH ONETIME ONE Stop: 08/11/18 20:11 Last Admin: 08/11/18 20:41 Dose: 80 mg Pantoprazole Sodium (Protonix Iv) Confirm Administered Dose 40 mg .ROUTE .STK -MED ONE Stop: 08/12/18 07:45 Last Admin: 08/12/18 08:02 Dose: Not Given Pantoprazole Sodium (Protonix Iv) 40 mg IVPUSH 0800 [facility] Last Admin: 08/16/18 08:10 Dose: 40 mg Phytonadione (Aquamephyton) 10 mg SUBCUT ONETIME ONE Stop: 08/11/18 20:10 Last Admin: 08/11/18 20:43 Dose: 10 mg Vancomycin HCl (Pharmacy To Dose - Vancomycin) 1 dose .XX DAILY [facility] Last Admin: 08/15/18 19:18 Dose: Not Given Vancomycin HCl (Pharmacy To Dose - Vancomycin) 1 dose .XX ASDIRECTED [facility] - Exam Quality Assessment: Reports: Supplemental Oxygen General: Reports: Obtunded Neck: Reports: Supple Lungs: Reports: Crackles, Wheezing Cardiovascular: Reports: Irregular Rhythm GI/Abdominal Exam: Normal Bowel Sounds, Soft, Non-Tender Extremities: Pedal Edema *Q Meaningful Use (DIS) - VTE *Q VTE Pharmacological Contraindications *Q: Active Hemorrhage
== END 2018-08-17 09:17 | disposition swing bed (61) | DRG 872 ==
LOC: CC.ED 17:26 → CC.MS 20:49 → UNDOADMIN 21:23
PROVIDERS: ADMIT Nurse Practitioner; ATTEND Family Medicine
PROC: 30233K1 Transfusion of Nonautologous Frozen Plasma into Peripheral Vein, Percutaneous Approach (ICD-10-PCS; principal; 2018-08-11)
PROC: 30233N1 Transfusion of Nonautologous Red Blood Cells into Peripheral Vein, Percutaneous Approach (ICD-10-PCS; 2018-08-12)
PROC: 30233K1 Transfusion of Nonautologous Frozen Plasma into Peripheral Vein, Percutaneous Approach (ICD-10-PCS; 2018-08-12)
DX: A41.9 Sepsis, unspecified organism (principal); L03.116 Cellulitis of left lower limb; L03.115 Cellulitis of right lower limb; K92.2 Gastrointestinal hemorrhage, unspecified; N17.9 Acute kidney failure, unspecified; D64.9 Anemia, unspecified; B95.1 Streptococcus, group B, as the cause of diseases classified elsewhere; B95.61 Methicillin susceptible Staphylococcus aureus infection as the cause of diseases classified elsewhere; T45.515A Adverse effect of anticoagulants, initial encounter; R73.9 Hyperglycemia, unspecified; I48.2 Chronic atrial fibrillation; F03.90 Unspecified dementia, unspecified severity, without behavioral disturbance, psychotic disturbance, mood disturbance, and anxiety; I50.9 Heart failure, unspecified; R79.89 Other specified abnormal findings of blood chemistry; Z66 Do not resuscitate; Z51.5 Encounter for palliative care; Z79.01 Long term (current) use of anticoagulants; Z79.899 Other long term (current) drug therapy
CPT/HCPCS: 36415; 36430; 70450; 71045; 80053; 81001; 82550; 83605; 83880; 84484; 85025; 85610; 86850; 86900; 86901; 86920 ×2; 86922 ×2; 87040 ×2; 87070; 87077 ×2; 87186; 93005; 96365; 96372; 96375; 99284; C9113; J2543; J3430; J7050 ×2; P9016; P9017; 51702; 74176; 80048; 80202; 82962; 85014; 85018; 86140; 94640; 94761; 96366; 97162-GP; 97597-GP; A9270-GY; J0696; J1940; J2060; J2270; J3370; J3480; J3490; J7040; J7612-GY